=== PATIENT | male | born 1945 ===

== ENCOUNTER 2023-04-20 08:12 | Inpatient (IN) | payer MEDICARE, SELFPAY ==
--- NOTE | 2023-04-20 | EEG_ITS ---
This is a 16-channel EEG with an EKG lead. The patient is reported drowsy and confused during the tracing. Background EEG rhythm is low amplitude, mixed theta, beta with no obvious asymmetry or paroxysmal tendency. Photic stimulation does not produce any significant abnormality. Hypoventilation is not performed. Cardiac lead does not reveal any significant abnormality. IMPRESSION: Generalized slowing with no evidence of seizure disorder. MD OSVALDO Leon/KILEY / [id number]
--- NOTE | ~2023-04-20 | CT_ITS ---
EXAMINATION: CT ABDOMEN AND PELVIS WITH CONTRAST CLINICAL INFORMATION: Abdominal pain COMPARISON: None available. TECHNIQUE: Multidetector volumetric images were obtained from the superior aspect of the liver through the pubic symphysis following administration 85 mL of Omnipaque 350 intravenous contrast. Sagittal and coronal reformatted images were obtained on the technologist's workstation. Oral contrast: No This CT examination was performed using dose optimization techniques as appropriate, variously including the following: *Automated exposure control *Adjustment of mA and/or kV according to patient size (this includes techniques or standardized protocols for targeted exams where dose is matched to indication/reason for exam; i.e. extremities or head) *Use of iterative reconstruction technique DLP: 767 mGy-cm FINDINGS: LUNG BASES: The visualized lung bases are unremarkable. Coronary artery calcifications present LIVER, GALLBLADDER, AND BILIARY TREE: Liver is of low attenuation without intrahepatic masses or ductal dilatation. The gallbladder is unremarkable with no evidence of radiopaque gallstones, gallbladder wall thickening, or obvious pericholecystic inflammatory changes. PANCREAS: There is fatty atrophy of pancreatic head and proximal body. SPLEEN: Unremarkable. ADRENAL GLANDS: Unremarkable. KIDNEYS AND URETERS: The kidneys are normal in size, shape, and attenuation. No hydronephrosis, hydroureter, or calculi seen. No perinephric stranding. BLADDER: Unremarkable. GASTROINTESTINAL TRACT: Colonic loops are severely distended by gas and liquid stool without evidence of wall thickening. Small bowel loops and appendix are unremarkable. There is no mesenteric inflammatory changes and no diverticulitis or diverticulosis. ABDOMINAL WALL: No significant hernia is appreciated. LYMPH NODES: Normal. VASCULAR: There are atherosclerotic calcifications in the abdominal aorta and major tributaries. PELVIC VISCERA: Unremarkable. OSSEOUS STRUCTURES: There are multilevel degenerative changes in facet joints of lumbar spine with grade 1 anterior listhesis of L4 over L5 and no evidence of spondylolysis. There are mild degenerative changes and hip joints bilaterally. CT/CT abdomen pelvis w IV con IMPRESSION: 1. Severe distention of colon by gas and liquid stool most likely due to colitis. 2. Hepatic steatosis. 3. Fatty atrophy of pancreatic head and body. 4. Degenerative changes in lumbar spine and hip joints. Fleischner guidelines were followed.
--- NOTE | ~2023-04-20 | XR_ITS ---
EXAMINATION: XR CHEST CLINICAL INFORMATION: Confusion. COMPARISON: None available. TECHNIQUE: 2 views of the chest were obtained. FINDINGS: The lungs are well expanded. No focal consolidation. No pleural effusion. Cardiac silhouette is prominent. Distended bowel in the upper abdomen as seen on the lateral view. XR/XR chest 2V IMPRESSION: No acute cardiopulmonary process.
--- NOTE | ~2023-04-20 | CT_ITS ---
EXAMINATION: CT HEAD WITHOUT CONTRAST CLINICAL INFORMATION: Weakness and confusion. COMPARISON: None available. TECHNIQUE: Contiguous axial imaging was performed from the skull base to vertex without intravenous administration of contrast. This CT examination was performed using dose optimization techniques as appropriate, variously including the following: *Automated exposure control *Adjustment of mA and/or kV according to patient size (this includes techniques or standardized protocols for targeted exams where dose is matched to indication/reason for exam; i.e. extremities or head) *Use of iterative reconstruction technique DLP: 790 mGy-cm FINDINGS: There is no evidence of acute intracranial hemorrhage or large infiltrating territorial infarction. No mass effect or midline shift is seen. No extra-axial fluid collections are identified. Borderline ventriculomegaly. Patchy periventricular and deep white matter hypoattenuation is consistent with moderate small vessel ischemic changes. The calvarium is intact. Mastoid air cells are clear. Mucous retention cyst in the right maxillary sinus. Patchy opacification of the ethmoid air cells. Rightward deviation of the nasal septum with prominent septal spur. CT/CT head/brain wo IV con IMPRESSION: Borderline ventriculomegaly. Advise clinical correlation for normal pressure hydrocephalus.
--- NOTE | 2023-04-20 08:14 | ED.GENADULT ---
HPI - General Adult General Chief complaint: Altered Mental Status Stated complaint: N/V/D,CONFUSION Time Seen by Provider: 04/20/23 08:13 Source: patient and EMS Mode of arrival: EMS Limitations: other (patient is confused) History of Present Illness HPI narrative: Patient is a 77 year old assigned female at with a history of dementia presenting to the emergency department today with vomiting and diarrhea per EMS. Patient states that he has been sick over the last few days. However, the patient also states that he has cats here in the hospital with him. He does not have cats here in the hospital with him. EMS states that the patient's on scene stated that the patient is more confused, has diarrhea, and vomiting. Patient denies any dizziness, lightheadedness, abdominal pain, fever, chills, blurry vision, double vision, loss of vision, chest pain, difficulty breathing, shortness of breath, back pain, night sweats, pain with urination, increased urinary frequency, increased urinary urgency, blood in his urine or stool, syncope or a near syncopal episode, recent trauma or falls, bowel incontinence, bladder incontinence, bowel retention, bladder retention, or any other complaints at this time. Onset (ago): day(s) Relieving factors: none Exacerbating factors: none Associated symptoms: confusion (chronic for the patient) and nausea/vomiting Treatments prior to arrival: none Related Data Home Medications Medication Instructions Recorded Confirmed albuterol sulfate 90 mcg/actuation 2 puff inhalation Q4H PRN 04/20/23 04/20/23 aerosol inhaler Shortness Of Breath Or Wheezing aspirin 81 mg chewable tablet 81 mg PO DAILY 04/20/23 04/20/23 atorvastatin 40 mg tablet 40 mg PO BEDTIME 04/20/23 04/20/23 bisacodyl 5 mg tablet,delayed 10 mg PO DAILY PRN Constipation 04/20/23 04/20/23 release cholecalciferol (vitamin D3) 50 50 mcg PO BEDTIME 04/20/23 04/20/23 mcg (2,000 unit) tablet docusate sodium 100 mg capsule 100 mg PO DAILY 04/20/23 04/20/23 (Colace) donepezil 10 mg tablet 10 mg PO DAILY 04/20/23 04/20/23 ipratropium bromide 42 mcg (0.06 1 spray intranasal DAILY 04/20/23 04/20/23 %) nasal spray lisinopril 10 mg tablet 10 mg PO DAILY 04/20/23 04/20/23 memantine 10 mg tablet 10 mg PO BID 04/20/23 04/20/23 metoprolol succinate 25 mg 25 mg PO DAILY 04/20/23 04/20/23 tablet,extended release 24 hr multivitamin 1 tab PO DAILY 04/20/23 04/20/23 naproxen sodium 220 mg tablet 220 mg PO Q8H PRN Pain 04/20/23 04/20/23 (Aleve) sertraline 100 mg tablet 100 mg PO DAILY 04/20/23 04/20/23 Allergies Allergy/AdvReac Type Severity Reaction Status Date / Time No Known Allergies Allergy Verified 04/20/23 08:16 Review of Systems Review of Systems: Yes Other (patient answered questions but is confused at baseline) Constitutional: Constitutional: Reports no additional constitutional complaints, Denies chills, Denies fever(s) and Denies night sweats Eyes: Eyes: Reports no additional eye complaints, Denies blurry vision, Denies change in vision, Denies diplopia, Denies eye discharge, Denies loss of vision and Denies eye pain ENT: Denies dizziness Cardiovascular: Cardiovascular: Reports no additional cardiovascular complaints, Denies chest pain, Denies lightheadedness, Denies Loss of Consciousness and Denies dyspnea Respiratory: Respiratory: Reports no additional respiratory complaints and Denies dyspnea Gastrointestinal: Gastrointestinal: Reports no additional gastrointestinal complaints, Denies abdominal pain, Denies melena, Denies hematochezia, Denies change in bowel habits, Denies change in stool character, Reports diarrhea, Reports nausea and Reports vomiting Genitourinary: Genitourinary: Reports no additional male genitourinary complaints, Denies hematuria, Denies oliguria, Denies difficulty urinating, Denies dysuria, Denies urinary frequency, Denies urinary hesitancy, Denies urinary incontinence and Denies urinary urgency Musculoskeletal: Musculoskeletal: Reports no additional musculoskeletal complaints, Denies numbness and Denies tingling Neurologic: Reports confusion (chronic for the patient - reports it is worse today), Denies dizziness, Denies loss of vision, Denies numbness and Denies tingling Psychiatric: Psychiatric: Reports no additional psychiatric complaints and Reports confusion (chronic for the patient - reports it is worse today) Endocrine: Endocrine: Reports no additional endocrine complaints Hematologic/Lymphatic: Hematologic/Lymphatic: Reports no additional hematologic/lymphatic complaints Allergic/Immunologic: Allergic/Immunologic: Reports no additional allergic/immunologic complaints PMFSH Past Medical History Attestation statement: The following information was validated with the patient. (patient's validated all information) Source: old records reviewed, obtained from family (patient's provided additional history and confirmed the history provided by the patient and EMS) and nursing notes reviewed Medical History (Updated 04/20/23 @ 14:39 by SHAYY Cat) Dementia CAD (coronary artery disease) Family History Family History (Updated 04/20/23 @ 14:40 by SHAYY Cat) Mother CAD (coronary artery disease) Diabetes Social History Social History (Updated 04/20/23 @ 14:40 by SHAYY Cat) Alcohol intake: never Patient Tobacco Use Status: Former Tobacco user Smoked in Last 30 Days: No Use of substances other than those prescribed or required for medical reasons: No Advance Directives: Yes Advance Directives Information Provided: No Advance Directives on File: No Physical Exam ED Vital Signs: Vital Signs - 24 hr 04/20/23 08:29 04/20/23 08:36 04/20/23 10:50 Temperature 98.1 F 98.1 F Pulse Rate 82 81 75 Respiratory Rate 18 18 20 Blood Pressure 134/58 L 134/56 L 123/74 Pulse Oximetry 95 95 95 Oxygen Delivery Method Room Air Room Air Room Air BMI result Body Mass Index 34.1 Const General: confusion (chronic for the patient - reports it is worse today) Nutritional Appearance: well nourished Orientation/consciousness: confusion (chronic for the patient - reports it is worse today) Limitations: no limitations [facility] Head: Yes normal to inspection and Yes atraumatic Ears: hearing grossly normal bilaterally and external ears normal General nose exam: Normal external nose present, no nasal discharge noted and no epistaxis Face and sinus: Yes normal facial exam, No abrasion and No laceration Mouth: Normal oral and palatal mucosa present, no drooling and no muffled voice Eyes General: appearance normal, both eyes and all related structures Periorbital: periorbital findings normal Eyelids: Yes eyelids normal Conjunctivae: conjunctivae normal Pupils: Equal, round and reactive pupils present EOM: EOMs intact bilaterally Neck Neck: Yes normal visual inspection, Yes full ROM and Yes no lymphadenopathy Chest Chest palpation & inspection: normal inspection of the chest Resp Effort & Inspection: normal respiratory effort and able to speak in complete sentences GI Inspection: Yes normal to inspection Neuro General: confusion (chronic for the patient - reports it is worse today) Cranial nerves: Yes Equal, round and reactive pupils present Cognition (Neuro): normal cognition Motor exam (neuro): 5/5 motor strength present throughout Sensory Exam: Normal double simultaneous stimulation for sensation Coordination: [id number] test normal Extrem General: Yes normal to inspection, Yes full ROM and Yes capillary refill normal Psych Appearance: grossly normal Mental Status: mental status grossly normal Affect: normal affect Attitude: cooperative Thought process: Normal thought process present Thought content: Normal thought content present Insight: Good insight present (Psych) Medications Administered Discontinued Medications Generic Name Dose Route Start Last Admin Trade Name Freq PRN Reason Stop Dose Admin Sodium Chloride 1,000 mls @ 999 mls/hr 04/20/23 09:45 04/20/23 13:22 Ns IV 04/20/23 10:45 Infused .Q1H1M RIMMA Infusion Ceftriaxone Sodium 1 gm/ 50 mls @ 100 mls/hr 04/20/23 10:08 04/20/23 11:27 Sodium Chloride IV 04/20/23 10:37 Infused ONCE ONE Infusion Iohexol 100 ml 04/20/23 11:55 04/20/23 11:56 Iohexol 350 Mg/Ml 100 Ml Infus..Btl IV 04/20/23 11:56 85 ml ONCE ONE Administration Lorazepam 2 mg 04/20/23 13:00 04/20/23 13:25 Lorazepam 1 Mg Tablet PO 04/20/23 13:01 2 mg ONCE ONE Administration Medical Decision Making Medical Decision Making [facility] Narrative: Patient is a 77 year old assigned male at with a history of dementia presenting to the emergency department today with nausea, vomiting, diarrhea, and worsening confusion. Patient's physical exam was as noted in the physical exam portion of this note. Patient's blood work showed 29 bands but was otherwise unremarkable. Patient's urine showed no acute process. Patient's EKG was unremarkable. Patient's chest x-ray showed no acute process. Patient's abdominal/pelvis CT showed severe distention of colon by gas and liquid stool most likely due to colitis. Patient was given IV antibiotics. Patient C.Diff and stool cultures pending at this time. I spoke to the hospitalist team and they agreed to admission. I explained my physical exam findings as well as all test results to the patient and the patient's . I answered all questions asked by the patient and the patient's . Patient and the patient's verbalized agreement and understanding with this treatment plan and admission. Differential Diagnosis Differential Diagnoses: The differential diagnosis associated with the presentation includes Colitis C.Diff Giarrdia Colitis Obstruction Admission/Observation Consideration of admission/observation: Escalation of care including admission/observation considered Patient admitted. Consult Healthcare Provider Management of the patient was discussed with: Hospitalist (agreed to admission) Lab Data MDM Lab Attestation statement: I reviewed the patient's lab results. My interpretation of these results are in the MDM Rationale portion of this note. 04/20/23 09:07 04/20/23 09:07 Labs: Lab Results 04/20/23 04/20/23 04/20/23 Range/Units 09:05 09:07 10:46 WBC 6.6 (4.8-10.8) X10*3/uL RBC 4.38 L (4.60-5.80) X10*6/uL Hgb 13.1 L (14.0-18.0) g/dl Hct 37.3 L (42.0-52.0) % MCV 85.2 (80.0-98.0) fL MCH 29.9 (27.0-33.0) pg MCHC 35.1 (31.0-36.0) g/dl RDW 13.8 (11.0-16.0) % Plt Count 211 (160-400) X10*3/uL MPV 9.8 (9.4-12.4) fL Immature Gran % (Auto) Cancelled Neut % (Auto) Cancelled Lymph % (Auto) Cancelled [place] % (Auto) Cancelled Eos % (Auto) Cancelled Baso % (Auto) Cancelled Lymph # (Auto) Cancelled [place] # (Auto) Cancelled Eos # (Auto) Cancelled Baso # (Auto) Cancelled Abs Immat Gran (auto) Cancelled Absolute Neuts (auto) Cancelled Absolute Nucleated RBC 0.000 (0.0-0.012) X10*3/uL Nucleated RBC % (auto) 0.0 (0.0-0.2) /100WBC Neutrophils % (Manual) 45 (45-73) % Band Neutrophils % 25 H (3-5) % Lymphocytes % (Manual) 10 L (20-40) % Monocytes % (Manual) 14 H (2-11) % Eosinophils % (Manual) 5 H (0-4) % Myelocytes % 1 % Abs Neuts (Manual) 4.6 (2.0-8.3) X10*3/uL Lymphocytes # (Manual) 0.7 L (1.2-4.9) X10*3/uL Monocytes # (Manual) 0.9 (0.1-1.2) X10*3/uL Eosinophils # (Manual) 0.3 (0.0-0.4) X10*3/uL Myelocytes # 0.1 X10*/uL Platelet Estimate NORMAL (NORMAL) Plt Morphology Comment NORMAL RBC Morphology NORMAL PT 13.5 H (11.1-13.3) SEC INR 1.1 (0.9-1.1) APTT 24.6 L (26.0-36.8) SEC Sodium 135 (135-145) mmol/L Potassium 3.6 (3.3-5.1) mmol/L Chloride 108 (96-108) mmol/L Carbon Dioxide 20 L (22-29) mmol/L Anion Gap 11 L (12-20) BUN 28 H (9-16) mg/dL Creatinine 0.83 (0.5-1.4) mg/dL Estim Creat Clear Calc 88.9 Estimated GFR > 60 Random Glucose 119 H (60-115) mg/dL Lactic Acid 1.3 (0.5-2.0) mmol/L Calcium 8.7 (8.4-10.2) mg/dL Magnesium 1.9 (1.6-2.6) mg/dL Total Bilirubin 1.0 (0.0-1.0) mg/dL AST 18 (5-37) U/L ALT 28 (0-40) U/L Alkaline Phosphatase 57 (39-117) U/L Troponin I High Sens < 2.7 (<3.5-35.0) ng/L Total Protein 6.8 (6.5-8.0) g/dL Albumin 3.9 (3.5-5.0) g/dL Urine Color Yellow Urine Appearance Clear Urine pH 5.5 (5.0-9.0) Ur Specific [place] >= 1.030 H (1.005-1.025) Urine Protein 30 (1+) H (Neg-Trace) mg/dL Urine Glucose (UA) Negative (Negative) mg/dL Urine Ketones Negative (Negative) mg/dL Urine Blood Negative (Negative) Urine Nitrite Negative (Negative) Ur Leukocyte Esterase Negative (Negative) Urine RBC 0-2 (0-2) /HPF Urine WBC 0-5 (0-5) /HPF Ur Squamous Epith Cells 0-2 (0-2) /HPF Urine Bacteria None Seen (None Seen) Hyaline Casts 3-5 (0-2) /LPF Influenza Type A (PCR) NEGATIVE (Negative) Influenza Type B (PCR) NEGATIVE (Negative) RSV RNA Qual (PCR) NEGATIVE (Negative) SARS-CoV-2 RNA (RT-PCR) NEGATIVE (Negative) Independent Interpretation I performed an independent interpretation of an: EKG, Plain X-Ray and CT Scan Interpretation: My interpretation is in agreement with the radiologist's impression of these imaging studies. EXAMINATION: XR CHEST CLINICAL INFORMATION: Confusion. COMPARISON: None available. TECHNIQUE: 2 views of the chest were obtained. FINDINGS: The lungs are well expanded. No focal consolidation. No pleural effusion. Cardiac silhouette is prominent. Distended bowel in the upper abdomen as seen on the lateral view. XR/XR chest 2V IMPRESSION: No acute cardiopulmonary process. Dictated By: Meryl Cruz MD Signed By: Electronically signed by Meryl Cruz MD 04/20/23 0847 EXAMINATION: CT HEAD WITHOUT CONTRAST CLINICAL INFORMATION: Weakness and confusion. COMPARISON: None available. TECHNIQUE: Contiguous axial imaging was performed from the skull base to vertex without intravenous administration of contrast. This CT examination was performed using dose optimization techniques as appropriate, variously including the following: *Automated exposure control *Adjustment of mA and/or kV according to patient size (this includes techniques or standardized protocols for targeted exams where dose is matched to indication/reason for exam; i.e. extremities or head) *Use of iterative reconstruction technique DLP: 790 mGy-cm FINDINGS: There is no evidence of acute intracranial hemorrhage or large infiltrating territorial infarction. No mass effect or midline shift is seen. No extra-axial fluid collections are identified. Borderline ventriculomegaly. Patchy periventricular and deep white matter hypoattenuation is consistent with moderate small vessel ischemic changes. The calvarium is intact. Mastoid air cells are clear. Mucous retention cyst in the right maxillary sinus. Patchy opacification of the ethmoid air cells. Rightward deviation of the nasal septum with prominent septal spur. CT/CT head/brain wo IV con IMPRESSION: Borderline ventriculomegaly. Advise clinical correlation for normal pressure hydrocephalus. Dictated By: Meryl Cruz MD Signed By: Electronically signed by Meryl Cruz MD 04/20/23 0920 EXAMINATION: CT ABDOMEN AND PELVIS WITH CONTRAST CLINICAL INFORMATION: Abdominal pain COMPARISON: None available. TECHNIQUE: Multidetector volumetric images were obtained from the superior aspect of the liver through the pubic symphysis following administration 85 mL of Omnipaque 350 intravenous contrast. Sagittal and coronal reformatted images were obtained on the technologist's workstation. Oral contrast: No This CT examination was performed using dose optimization techniques as appropriate, variously including the following: *Automated exposure control *Adjustment of mA and/or kV according to patient size (this includes techniques or standardized protocols for targeted exams where dose is matched to indication/reason for exam; i.e. extremities or head) *Use of iterative reconstruction technique DLP: 767 mGy-cm FINDINGS: LUNG BASES: The visualized lung bases are unremarkable. Coronary artery calcifications present LIVER, GALLBLADDER, AND BILIARY TREE: Liver is of low attenuation without intrahepatic masses or ductal dilatation. The gallbladder is unremarkable with no evidence of radiopaque gallstones, gallbladder wall thickening, or obvious pericholecystic inflammatory changes. PANCREAS: There is fatty atrophy of pancreatic head and proximal body. SPLEEN: Unremarkable. ADRENAL GLANDS: Unremarkable. KIDNEYS AND URETERS: The kidneys are normal in size, shape, and attenuation. No hydronephrosis, hydroureter, or calculi seen. No perinephric stranding. BLADDER: Unremarkable. GASTROINTESTINAL TRACT: Colonic loops are severely distended by gas and liquid stool without evidence of wall thickening. Small bowel loops and appendix are unremarkable. There is no mesenteric inflammatory changes and no diverticulitis or diverticulosis. ABDOMINAL WALL: No significant hernia is appreciated. LYMPH NODES: Normal. VASCULAR: There are atherosclerotic calcifications in the abdominal aorta and major tributaries. PELVIC VISCERA: Unremarkable. OSSEOUS STRUCTURES: There are multilevel degenerative changes in facet joints of lumbar spine with grade 1 anterior listhesis of L4 over L5 and no evidence of spondylolysis. There are mild degenerative changes and hip joints bilaterally. CT/CT abdomen pelvis w IV con IMPRESSION: 1. Severe distention of colon by gas and liquid stool most likely due to colitis. 2. Hepatic steatosis. 3. Fatty atrophy of pancreatic head and body. 4. Degenerative changes in lumbar spine and hip joints. Fleischner guidelines were followed. Dictated By: Rukhsana Cutler MD Signed By: Electronically signed by Rukhsana Cutler MD 04/20/23 1321 Vent. Rate: 071 BPM Atrial Rate: 071 BPM P-R Int: 166 ms QRS Dur: 080 ms QT Int: 374 ms P-R-T Axes: 047 029 054 degrees QTc Int: 406 ms Normal sinus rhythm Normal ECG No previous ECGs available DD/ 0836 Radiology Impression Discussion of test interpretation with radiology: I have reviewed the radiologist's reading. Independent Historian Clinical information obtained from an independent historian. History obtained from or confirmed by: Spouse (patient's provided additional history and confirmed the history provided by the patient and EMS) and EMS (EMS provided additional history and confirmed the history provided by the patient and his ) Critical Care Time Critical Care Time Critical Care Time: Yes Total Critical Care Time: 55 Attestation: I spent 55 minutes of Critical Care Time with this patient. This does not include time spent on separately reported billable procedures. Discharge Plan Discharge Clinical Impression: Dementia, Colitis, Bandemia Patient Disposition: Admitted As Inpatient
--- NOTE | 2023-04-20 08:16 | ECG_ITS ---
Test Reason : weakness,nausea,vomiting Blood Pressure : / mmHG Vent. Rate : 071 BPM Atrial Rate : 071 BPM P-R Int : 166 ms QRS Dur : 080 ms QT Int : 374 ms P-R-T Axes : 047 029 054 degrees QTc Int : 406 ms Normal sinus rhythm Normal ECG No previous ECGs available Referred By: Amber Villatoro Electronically Signed By:Daryn Bills
[2023-04-20 08:29] VITALS: BP 134/58; BP 146/74; PULSE 80; PULSE 82; RESP 18; TEMP 36.7; O2SAT 95; O2SAT 97; BMI 34.1
[2023-04-20 08:36] VITALS: BP 134/56; PULSE 81; RESP 18; TEMP 36.7; O2SAT 95
--- NOTE | 2023-04-20 08:40 | PC.NURSE ---
pt presents via EMS for increased confusion, N/V/D X multiple days and no PO intake since monday. pt lives at home with , reports to EMS that pt is confused at baseline due to dementia but confusion has increased last couple of days. pt noted to be oriented to person and place, otherwise confused. Breathing even and unlabore, skin dry and slightly pale. pt reports he has been vomiting and not eating, otherwise here because of his cats . EMS gave NS 350 mL, IV in left hand 20G.
--- NOTE | 2023-04-20 08:42 | PC.NURSE ---
pt taken to CT scan at this time.
--- NOTE | 2023-04-20 08:53 | PC.NURSE ---
pts abd noted to be hard and distended. pt resting in bed, no outward distress at this time
--- NOTE | 2023-04-20 08:54 | PC.NURSE ---
pt placed on bedside manager cardiac cath, NSR.
--- OUTSIDE RECORDS SUMMARY | 2023-04-20 09:17 | XMS_ITS | Continuity of Care Document ---
Author Name Unknown Organization [facility] Address [address] [facility] [facility] [address] [place] [address]- Care Team Providers Care Bisque Placer Name Role Phone Lissy MANZANO, Hawk Madrigal Primary Care Physician Encounter 06/28/21 - 07/05/21 [facility] [address], [address] [address]- Attending Physician: Bre Espinal NP Admitting Physician: Bre Espinal NP Referring Physician: Teddy DUGAN, Bre Banks Allergies, Adverse Reactions, Alerts No Known Allergies Medications aspirin 81 mg oral tablet, chewable = 81 mg, By Mouth, Daily, # 30 tablet, 2 Refills, Maintenance, 04/10/15 14:49:56, Chew Tablet, 81 mg By Mouth Daily Start Date: 04/10/15 Status: Ordered atorvastatin 80 mg oral tablet = 80 mg, By Mouth, Daily at bedtime, # 30 tablet, 0 Refills, Maintenance, 04/10/15 14:50:49, Tablet, 80 mg By Mouth Daily at bedtime Start Date: 04/10/15 Status: Ordered folic acid 1 mg oral tablet = 1 mg, By Mouth, Daily, # 30 tablet, 0 Refills, Maintenance, 04/10/15 14:51:08, Tablet, 1 mg By Mouth Daily Start Date: 04/10/15 Status: Ordered lisinopril 10 mg oral tablet 1 tablet = 10 mg, By Mouth, Daily, # 30 tablet, 0 Refills, Maintenance, 04/06/15 17:40:15, Tablet Start Date: 04/06/15 Status: Ordered Metoprolol Succinate ER 25 mg oral tablet, extended release 1 tablet = 25 mg, By Mouth, Daily, # 30 tablet, 0 Refills, Maintenance, 04/10/15 14:53:37, ER Tablet, 1 tablet By Mouth Daily Start Date: 04/10/15 Status: Ordered multivitamin Multiple Vitamins oral tablet 1 tablet, By Mouth, Daily, # 30 tablet, 0 Refills, Maintenance, 04/10/15 14:54:57, Tablet, 1 tabletBy Mouth Daily Start Date: 04/10/15 Status: Ordered sertraline 100 mg oral tablet = 100 mg, By Mouth, Daily, # 30 tablet, 0 Refills, Maintenance, 04/10/15 14:49:18, Tablet, 100 mg By Mouth Daily Start Date: 04/10/15 Status: Ordered ticagrelor 90 mg oral tablet 1 tablet = 90 mg, By Mouth, 2 times a day, # 60 tablet, 2 Refills, Maintenance, 04/10/15 14:55:52, Tablet, 1 tablet By Mouth 2 times a day Start Date: 04/10/15 Status: Ordered Social History Social History Type Response Smoking Status Former smoker; Type: Cigarettes; Other: Pt smoked 1 PPD x30 years, quit 04/06/15 Pt currently using nicotine patch; entered on: 04/22/15 Sex
--- OUTSIDE RECORDS SUMMARY | 2023-04-20 09:19 | XMS_ITS | Continuity of Care Document ---
Author Name Unknown Organization [facility] Address [address] [place] [id number]- Care Team Providers Care Glass Driller Name Role Phone Lissy MANZANO, Hawk Madrigal Primary Care Physician [phone] Encounter [facility] Date(s): 06/21/22 - 07/21/22 [facility] [address] [place] [id number] Allergies, Adverse Reactions, Alerts No Known Allergies [...] using nicotine patch; entered on: 04/22/15 Sex Patient Care team information Care Team Personnel Name: Lissy MANZANO , Hawk Madrigal Position: [facility] Outreach Member Role: PCP Address: Address: [address] [place] [id number]- Care Team Related Persons Name: JOEL SNYDER Address: home [address] [place] [address]
[2023-04-20 09:20] LABS: INTERNATIONAL NORM RATIO 1.1 (0.9-1.1); Prothrombin Time 13.5 SEC (11.1-13.3)
[2023-04-20 09:22] LABS: Partial Thromboplastin Time 24.6 SEC (26.0-36.8)
[2023-04-20 09:25] LABS: Lactic Acid 1.3 mmol/L (0.5-2.0)
[2023-04-20 09:25] LABS: Hematocrit 37.3 % (42.0-52.0); Hemoglobin 13.1 g/dl (14.0-18.0); Mean Corpuscular HGB Conc 35.1 g/dl (31.0-36.0); Mean Corpuscular Hemoglobin 29.9 pg (27.0-33.0); Mean Corpuscular Volume 85.2 fL (80.0-98.0); Mean Platelet Volume 9.8 fL (9.4-12.4); Platelet Count 211 X10*3/uL (160-400); Red Blood Count 4.38 X10*6/uL (4.60-5.80); Red Cell Distribution Width 13.8 % (11.0-16.0); White Blood Count 6.6 X10*3/uL (4.8-10.8)
--- NOTE | 2023-04-20 09:25 | PC.NURSE ---
pt bladder scanned per provider, scan revealed 195 mL.
[2023-04-20 09:30] LABS: Alanine Aminotransferase 28 U/L (0-40); Albumin Level 3.9 g/dL (3.5-5.0); Alkaline Phosphatase 57 U/L (39-117); Anion Gap 11 (12-20); Aspartate Amino Transferase 18 U/L (5-37); Blood Urea Nitrogen 28 mg/dL (9-16); Calcium 8.7 mg/dL (8.4-10.2); Carbon Dioxide 20 mmol/L (22-29); Chloride 108 mmol/L (96-108); Creatinine Clr Calc Pharmacy 88.9; Estimated Glomerular Filt Rate > 60; Glucose Random 119 mg/dL (60-115); Magnesium 1.9 mg/dL (1.6-2.6); Potassium 3.6 mmol/L (3.3-5.1); Sodium 135 mmol/L (135-145); Total Protein 6.8 g/dL (6.5-8.0)
[2023-04-20 09:38] LABS: Troponin-I High Sensitivity < 2.7 ng/L (<3.5-35.0)
[2023-04-20] MEDS: 0.9 % Sodium Chloride 1,000 ML 999 ML IV (09:42)
[2023-04-20 09:50] LABS: Influenza A PCR NEGATIVE (Negative); Influenza B PCR NEGATIVE (Negative); Resp Syncy Virus RNA Qual PCR NEGATIVE (Negative); SARS COV2 PCR INHOUSE NEGATIVE (Negative)
[2023-04-20 10:04] LABS: Neutrophils Percent Manual 45 % (45-73)
[2023-04-20 10:07] LABS: Band Neutrophils Percent 25 % (3-5); Eosinophils Absolute Manual 0.3 X10*3/uL (0.0-0.4); Eosinophils Percent Manual 5 % (0-4); Lymphocytes Absolute Manual 0.7 X10*3/uL (1.2-4.9); Lymphocytes Percent Manual 10 % (20-40); Monocytes Absolute Manual 0.9 X10*3/uL (0.1-1.2); Monocytes Percent Manual 14 % (2-11); Myelocytes Absolute 0.1 X10*/uL; Myelocytes Percent 1 %; Neutrophils Absolute Manual 4.6 X10*3/uL (2.0-8.3); Platelet Estimate NORMAL (NORMAL); Platelet Morphology Comment NORMAL; RBC Morphology NORMAL
[2023-04-20] MEDS: cefTRIAXone sodium 1 GM in 0.9 % Sodium Chloride 50 ML IV (10:48)
[2023-04-20 10:50] VITALS: BP 123/74; PULSE 75; RESP 20; O2SAT 95
[2023-04-20 10:57] LABS: Appearance Urine Clear; Color Urine Yellow; Glucose Urine UA Negative (Negative); Leukocyte Esterase Urine Negative (Negative); Nitrite Urine Negative (Negative); PH 5.5 (5.0-9.0); Specific Gravity - Urine >= 1.030 (1.005-1.025); UMIC TRIGGER UACC YES; Urine Blood Negative (Negative); Urine Ketones Negative (Negative); Urine Protein 30 (1+) mg/dL (Neg-Trace)
[2023-04-20 11:09] LABS: Bacteria Urine None Seen (None Seen); RBC Urine 0-2 /HPF (0-2); Squamous Epithelial Cell Urine 0-2 /HPF (0-2); WBC Urine 0-5 /HPF (0-5)
[2023-04-20] MEDS: iohexoL 350 MG/ML 100 ML INFUS..BTL IV (11:56)
[2023-04-20] MEDS: LORazepam 1 MG TABLET 2 MG PO (13:25)
--- NOTE | 2023-04-20 14:01 | PC.NURSE ---
Hospitalist at bedside for eveal. Awaiting stool specimen for collection. at bedside
--- NOTE | 2023-04-20 14:28 | PHA.MEDREC ---
Pharmacy Consult ? Medication Reconciliation Pharmacy has completed the medication reconciliation. Patient's family member confirm medications. Unsure if metoprolol is twice a day or once a day. Per claim history he received 90 tablet for a 90 day supply. There for it would be once a day. Alma Nelson, PharmD
--- NOTE | 2023-04-20 14:30 | PM.IMHP ---
History of Present Illness Date of Service: 04/20/23 Attending physician on admission: Percy Sanchez Chief Complaint: weakness, vomiting, diarrhea This is a 77-year-old male with history of coronary artery disease and dementia who was brought to the emergency department by his due to increasing weakness. Monday night he had a meatball sample grinder and Monday he had a tuna fish sample grinder. Shortly after that time he began having multiple episodes of non bloody vomiting. As well as intermittent diarrhea. He has had no associated abdominal pain, fever, chills. No recent sick contacts, no recent antibiotic use or hospitalizations. Patient's says that he has not had anything substantial to eat since Monday and has had increasing generalized weakness and was unable to stand. In the emergency department he was afebrile, workup significant for bandemia of 25%. CT scan of the abdomen showed severe distention of colon by gas and liquid stool most likely due to colitis. He received a dose of IV ceftriaxone and IV fluid in the emergency department and the decision was made to admit him to the hospital for further management of colitis. The majority of his history was obtained from his at the bedside as the patient himself appears confused and is a vague historian at this time. Review of Systems Review of Systems: Yes all other systems are reviewed and are negative Constitutional: Constitutional: Denies chills and Denies fever(s) Cardiovascular: Cardiovascular: Denies chest pain Gastrointestinal: Gastrointestinal: Denies abdominal pain Neurologic: Reports confusion Psychiatric: Psychiatric: Reports confusion [facility] Medical History (Updated 04/20/23 @ 14:39 by SHAYY Cat) Dementia CAD (coronary artery disease) Family History (Updated 04/20/23 @ 14:40 by SHAYY Cat) Mother CAD (coronary artery disease) Diabetes Social History (Updated 04/20/23 @ 14:40 by SHAYY Cat) Alcohol intake: never Patient Tobacco Use Status: Former Tobacco user Smoked in Last 30 Days: No Use of substances other than those prescribed or required for medical reasons: No Advance Directives: Yes Advance Directives Information Provided: No Advance Directives on File: No Meds Allergies Allergy/AdvReac Type Severity Reaction Status Date / Time No Known Allergies Allergy Verified 04/20/23 08:16 Active Medications: Current Medications Acetaminophen (Acetaminophen 325 Mg Tablet) 650 mg PO Q6H PRN PRN Reason: Pain, Mild (Pain Scale 1-3) Enoxaparin Sodium (Enoxaparin Sodium 40 Mg/0.4 Ml Syringe) 40 mg SUBCUT Q24H [facility] Ondansetron HCl (Ondansetron Hcl 4 Mg/2 Ml Vial) 4 mg IVPUSH Q8H PRN PRN Reason: Nausea and Vomiting Sodium Chloride (0.9 % Sodium Chloride Flush 3 Ml Syringe) 3 ml IVFLUSH QSHIFT [facility] Home Medications Medication Instructions Recorded Confirmed Last Taken Type albuterol sulfate 90 mcg/actuation 2 puff inhalation Q4H PRN 04/20/23 04/20/23 Unknown History aerosol inhaler Shortness Of Breath Or Wheezing aspirin 81 mg chewable tablet 81 mg PO DAILY 04/20/23 04/20/23 2 Days Ago History ~04/18/23 atorvastatin 40 mg tablet 40 mg PO BEDTIME 04/20/23 04/20/23 2 Days Ago History ~04/18/23 bisacodyl 5 mg tablet,delayed 10 mg PO DAILY PRN Constipation 04/20/23 04/20/23 Unknown History release cholecalciferol (vitamin D3) 50 50 mcg PO BEDTIME 04/20/23 04/20/23 2 Days Ago History mcg (2,000 unit) tablet ~04/18/23 docusate sodium 100 mg capsule 100 mg PO DAILY 04/20/23 04/20/23 2 Days Ago History (Colace) ~04/18/23 donepezil 10 mg tablet 10 mg PO DAILY 04/20/23 04/20/23 2 Days Ago History ~04/18/23 ipratropium bromide 42 mcg (0.06 1 spray intranasal DAILY 04/20/23 04/20/23 2 Days Ago History %) nasal spray ~04/18/23 lisinopril 10 mg tablet 10 mg PO DAILY 04/20/23 04/20/23 2 Days Ago History ~04/18/23 memantine 10 mg tablet 10 mg PO BID 04/20/23 04/20/23 2 Days Ago History ~04/18/23 metoprolol succinate 25 mg 25 mg PO DAILY 04/20/23 04/20/23 2 Days Ago History tablet,extended release 24 hr ~04/18/23 multivitamin 1 tab PO DAILY 04/20/23 04/20/23 2 Days Ago History ~04/18/23 naproxen sodium 220 mg tablet 220 mg PO Q8H PRN Pain 04/20/23 04/20/23 Unknown History (Aleve) sertraline 100 mg tablet 100 mg PO DAILY 04/20/23 04/20/23 2 Days Ago History ~04/18/23 Physical Exam Vital Signs and Narrative: Vital Signs: Last Vital Signs Temp 98.1 F 04/20/23 08:36 Pulse 75 04/20/23 10:50 Resp 20 04/20/23 10:50 BP 123/74 04/20/23 10:50 Pulse Ox 95 04/20/23 10:50 O2 Del Method Room Air 04/20/23 10:50 BMI result Body Mass Index 34.1 Const: General: cooperative, alert, awake and confusion Nutritional Appearance: overweight Orientation/consciousness: confusion Resp: Effort & Inspection: normal respiratory effort, able to speak in complete sentences, no respiratory distress and no use of accessory muscles Auscultation: clear to auscultation bilaterally Cardio: Rate: regular rate GI: Inspection: No distended Palpation (GI): Soft to palpation Neuro: Other: grossly nonfocal General: confusion Extrem: General: Yes no pedal edema Results Labs 04/20/23 09:07 04/20/23 09:07 Labs: Laboratory Results - last 24 hr 04/20/23 04/20/23 04/20/23 09:05 09:07 10:46 MCV 85.2 MCH 29.9 MCHC 35.1 RDW 13.8 Plt Count 211 MPV 9.8 Immature Gran % (Auto) Cancelled Neut % (Auto) Cancelled Lymph % (Auto) Cancelled Bowie % (Auto) Cancelled Eos % (Auto) Cancelled Baso % (Auto) Cancelled Lymph # (Auto) Cancelled Bowie # (Auto) Cancelled Eos # (Auto) Cancelled Baso # (Auto) Cancelled Abs Immat Gran (auto) Cancelled Absolute Neuts (auto) Cancelled Absolute Nucleated RBC 0.000 Nucleated RBC % (auto) 0.0 Neutrophils % (Manual) 45 Band Neutrophils % 25 H Lymphocytes % (Manual) 10 L Monocytes % (Manual) 14 H Eosinophils % (Manual) 5 H Myelocytes % 1 Abs Neuts (Manual) 4.6 Lymphocytes # (Manual) 0.7 L Monocytes # (Manual) 0.9 Eosinophils # (Manual) 0.3 Myelocytes # 0.1 Platelet Estimate NORMAL Plt Morphology Comment NORMAL RBC Morphology NORMAL PT 13.5 H INR 1.1 APTT 24.6 L Anion Gap 11 L Estim Creat Clear Calc 88.9 Estimated GFR > 60 Random Glucose 119 H Lactic Acid 1.3 Calcium 8.7 Magnesium 1.9 Total Bilirubin 1.0 AST 18 ALT 28 Alkaline Phosphatase 57 Troponin I High Sens < 2.7 Total Protein 6.8 Albumin 3.9 Urine Color Yellow Urine Appearance Clear Urine pH 5.5 Ur Specific Meadow >= 1.030 H Urine Protein 30 (1+) H Urine Glucose (UA) Negative Urine Ketones Negative Urine Blood Negative Urine Nitrite Negative Ur Leukocyte Esterase Negative Urine RBC 0-2 Urine WBC 0-5 Ur Squamous Epith Cells 0-2 Urine Bacteria None Seen Hyaline Casts 3-5 Influenza Type A (PCR) NEGATIVE Influenza Type B (PCR) NEGATIVE RSV RNA Qual (PCR) NEGATIVE SARS-CoV-2 RNA (RT-PCR) NEGATIVE Imaging Radiologist's Impressions: Impressions Chest X-Ray 04/20/23 08:26 IMPRESSION: No acute cardiopulmonary process. Head CT 04/20/23 08:59 IMPRESSION: Borderline ventriculomegaly. Advise clinical correlation for normal pressure hydrocephalus. Abdomen/Pelvis CT 04/20/23 11:57 IMPRESSION: 1. Severe distention of colon by gas and liquid stool most likely due to colitis. 2. Hepatic steatosis. 3. Fatty atrophy of pancreatic head and body. 4. Degenerative changes in lumbar spine and hip joints. Fleischner guidelines were followed. Assessment and Plan (1) Colitis: Status: Acute (2) Bandemia: Status: Acute Plan This is a 77-year-old male with history of coronary artery disease, dementia who presents to the emergency department with weakness and N/V/D found to have colitis acute colitis vs gastroenteritis CT with severe distention of colon with gas and liquid stool pt with N/V/D check stool studies, rule out cdif IV zosyn clear liquids, advance as tolerated metabolic encephalopathy due to above on a background of dementia, unspecified CAD no chest pain continue asa, BB, statin dementia unspecified, likely Alzheimer's continue namenda, aricept HTN continue lisinorpril, metroprolol Mood continue sertraline DVT ppx - lovenox code status - Full code HCP - Given confusion and colitis, will likely require two midnight stay in the hospital for treatment with IV antitibiotics addendeum: pt was given one time dose of seroquel for increasing anxiety likely due to from underlying dementia. shortly after he began having what was described by the nurse as full body shaking while remaining awake. initial re-eval he appeared comfortable but confused but no shaking movements seen. on second re-eval he was noted to have chorea like movements ?due to seroquel. will trial low dose of ativan. tele monitor ordered. neuro consulted Quality Stroke Does the patient have a stroke diagnosis?: No VTE Prior VTE?: No VTE Risk Level:: Medical - moderate - high VTE Device Contraindication: Treatment Not Indicated VTE Drug Contraindication: N/A - Med Ordered
[2023-04-20] MEDS: Piperacillin Sodium/Tazobactam 3.375 GM in 0.9 % Sodium Chloride 50 ML IV ×2 (15:21→20:12)
[2023-04-20] MEDS: Lactated Ringers 1,000 ML 100 ML IVCONT (15:24)
[2023-04-20 15:34] VITALS: BP 151/91; PULSE 74; RESP 20; TEMP 37.6; O2SAT 97
[2023-04-20] MEDS: 0.9 % Sodium Chloride Flush 3 ML SYRINGE IVFLUSH (15:34)
--- NOTE | 2023-04-20 15:35 | PC.NURSE ---
increased agitation, hallucinations and confusion. Hospitalist aware. Rctal temp 99.7. left bedside and will return. Abx given and LR started at 100ml/hr. Skin warm pink and dry. VSS
[2023-04-20] MEDS: QUEtiapine Fumarate 25 MG TABLET PO (15:36)
--- NOTE | 2023-04-20 16:30 | PC.NURSE ---
pt noted to have brief periods of full body shaking, remains alert during these episodes.
--- NOTE | 2023-04-20 16:42 | PC.NURSE ---
hospitalist contacted due to pts increasing hallucinations and agitation. provider came to bedside.
--- NOTE | 2023-04-20 17:03 | PC.NURSE ---
pt noted to have more frequent episodes of full body shaking, lasts approx 5-10 seconds each. pt remains alert and talking during this episodes but appears to have no control over his body. pt is confused, making bizarre statements. admitting provider notified again
--- NOTE | 2023-04-20 17:16 | PC.NURSE ---
Pt continues to be increasingly altered, noted with jerky shaking movements last approx 2-5 sec every 1-2 min, seizure like however pt remains conscious throughout episodes. Pt not answering questions appropriately as with initial assessment. Yaima LUCAS aware, pt being transferred to floor at this time with Ella LAWS and Mitchel esquivel for safety
[2023-04-20] MEDS: LORazepam 2 MG/ML VIAL 0.5 MG IVPUSH (17:49)
[2023-04-20] MEDS: Enoxaparin Sodium 40 MG/0.4 ML SYRINGE SUBCUT (17:49)
[2023-04-20 17:59] VITALS: BP 162/77; PULSE 99; RESP 21; O2SAT 94
[2023-04-20 19:04] VITALS: BP 149/67; PULSE 88; TEMP 37; O2SAT 94
--- NOTE | 2023-04-20 20:46 | PM.EVENT ---
Event Note Date of Service: 04/20/23 Event Note: The nurse stated that the wanted to talk about the patient. The states that she had discussed with the regarding goals of care. The was clear that he did not want intubation. Also the who is healthcare proxy does not want any resuscitative measures. The understands and is able to communicate clearly. Will change code status to DNR/DNI. Time Spent With Patient Time: Total time managing care of this patient today ____ minutes.
[2023-04-20] MEDS: OLANZapine 10 MG VIAL 5 MG IM (21:22)
[2023-04-20] MEDS: diazePAM 10 MG/2 ML CARTRIDGE 5 MG IVPUSH (21:52)
[2023-04-21] MEDS: Lactated Ringers 1,000 ML 100 ML IVCONT ×2 (01:46→12:45)
[2023-04-21] MEDS: Piperacillin Sodium/Tazobactam 3.375 GM in 0.9 % Sodium Chloride 50 ML IV ×4 (02:33→21:27)
[2023-04-21] MEDS: diazePAM 10 MG/2 ML CARTRIDGE 5 MG IVPUSH ×2 (03:54→22:06)
[2023-04-21 04:00] VITALS: BP 142/66; PULSE 64; RESP 20; TEMP 36.2; O2SAT 94
--- NOTE | 2023-04-21 04:12 | PC.NURSE ---
Pt seen on bed at start of shift, pt's is at bedside and voicing concern and asking to speak to MD, pt was lethargic with periods of wakefulness but confused and thrashing on the air, spastic and tremulous, unredirectible and slurred, Dr. Escobar was updated, Shawn Armenta came and spoke to pt's , code status was changed to DNR/DNI, po meds held as per Dr. Escobar for aspiration prevention, Zyprexa IM ordered, no effect noted, Valium Iv given, pt slept for a few hours. At 0300, pt begun to be increasingly agitated ,combative, restless and spastic on and off, Dr. Escobar was informed, another Valium 5 mg IV given, pt slept after.
[2023-04-21 05:29] LABS: MANUAL DIFF FLAG NO
[2023-04-21 05:45] LABS: Basophils Percent Auto 0.3 % (0-2); Eosinophils Absolute Auto 0.2 X10*3/uL (0.0-0.4); Eosinophils Percent Auto 2.7 % (0-4); Hematocrit 33.8 % (42.0-52.0); Hemoglobin 11.7 g/dl (14.0-18.0); Imm Gran Abs Auto 0.04 X10*3/uL (0.00-0.03); Imm Gran Pct Auto 0.6 % (0.0-0.4); Lymphocytes Absolute Auto 0.9 X10*3/uL (1.2-4.9); Lymphocytes Percent Auto 14.8 % (20-40); Mean Corpuscular HGB Conc 34.6 g/dl (31.0-36.0); Mean Corpuscular Hemoglobin 29.5 pg (27.0-33.0); Mean Corpuscular Volume 85.4 fL (80.0-98.0); Mean Platelet Volume 9.5 fL (9.4-12.4); Neutrophils Absolute Auto 4.1 x10*3/uL (2.0-8.3); Neutrophils Percent Auto 65.6 % (45-73); Platelet Count 158 X10*3/uL (160-400); Red Blood Count 3.96 X10*6/uL (4.60-5.80); Red Cell Distribution Width 13.5 % (11.0-16.0); White Blood Count 6.2 X10*3/uL (4.8-10.8)
[2023-04-21 05:50] LABS: Anion Gap 10 (12-20); Blood Urea Nitrogen 18 mg/dL (9-16); Calcium 8.4 mg/dL (8.4-10.2); Carbon Dioxide 23 mmol/L (22-29); Chloride 111 mmol/L (96-108); Creatinine Clr Calc Pharmacy 89.9; Estimated Glomerular Filt Rate > 60; Glucose Random 97 mg/dL (60-115); Potassium 3.3 mmol/L (3.3-5.1); Sodium 141 mmol/L (135-145)
[2023-04-21 07:05] VITALS: BP 161/68; PULSE 56; RESP 18; TEMP 36.6; O2SAT 96
--- NOTE | 2023-04-21 09:05 | MHC.CLN ---
NUTRITION ELAN =11 BUT NO SKIN ISSUES NOTED. RD TO MONITOR WEEKLY.
[2023-04-21] MEDS: 0.9 % Sodium Chloride Flush 3 ML SYRINGE IVFLUSH (09:54)
--- NOTE | 2023-04-21 11:03 | MHC.CM.PN ---
Addendum entered by Yesica Mckeon RN 04/21/23 11:11: IMM delivered to /HCP. Original Note: PODIATRY DOCTOR completed with patient's /hcp Amber, patient w/ confusion at this time. Per - dx vascular dementia, but at baseline only has periods of forgetfulness when stressed. Also has tremors to both hands and shuffles at times. Has declined neurology referral for further work up. Patient is independent w/ mobility and ADL's, still drives. No DME or services. PCP: Jonathan Chavarria MD [facility] - confirmed w/ office HCP: provided copy of HCP. Agents are 1) Amber Mane [phone] 2) daughter Aminah Mane [phone] DP: Per patient has been very weak, will likely need PT eval. is open to home services and can transport home. CM will continue to follow.
--- NOTE | 2023-04-21 14:29 | PM.NEUROCN ---
History of Present Illness Data of Consult Service Date: 04/21/23 Primary Care Provider: Jonathan Chavarria MD HPI Reason for consult: Change in mental status 77 years old man who probably has underlying dementia came to hospital with a day or 2 history of abdominal pain nausea and vomiting and diarrhea. While this was happening, his mental status changed and he was noted to be very confused and having generalize movements. His daughter stated that he had to become down with Valium otherwise he was shaking like a seizure. When I saw him he was sedated. Review of Systems Review of Systems: Could not be done with him [facility] Past Medical History Medical History (Updated 04/21/23 @ 14:30 by Cooper Stein MD) Dementia CAD (coronary artery disease) Family History Family History (Updated 04/20/23 @ 14:40 by SHAYY Cat) Mother CAD (coronary artery disease) Diabetes Social History Social History (Updated 04/20/23 @ 14:40 by SAHYY Cat) Household Members: Spouse Housing: House Alcohol intake: never Patient Tobacco Use Status: Former Tobacco user Smoked in Last 30 Days: No Use of substances other than those prescribed or required for medical reasons: Unable to respond Currently Displaying Signs/Symptoms of Drug Intoxication Withdrawal: No Advance Directives: Yes Advance Directives Information Provided: No Advance Directives on File: No Advance Directives Date on File: 04/20/23 Recently lost weight without trying: Unsure Nutrition Risks: No Nutritional Risk service: No Meds Allergies Allergy/AdvReac Type Severity Reaction Status Date / Time No Known Allergies Allergy Verified 04/20/23 08:16 Active Medications: Current Medications Acetaminophen (Acetaminophen 325 Mg Tablet) 650 mg PO Q6H PRN PRN Reason: Pain, Mild (Pain Scale 1-3) Albuterol Sulfate (Albuterol Sulfate 90 Mcg 8 Gm Inhaler) 2 puff INHALE Q4H PRN PRN Reason: Shortness Of Breath Or Wheezing Aspirin (Aspirin 81 Mg Tab.Chew) 81 mg PO DAILY [facility] Last Admin: 04/21/23 10:46 Dose: Not Given Atorvastatin Calcium (Atorvastatin Calcium 40 Mg Tablet) 40 mg PO BEDTIME [facility] Last Admin: 04/20/23 21:41 Dose: Not Given Docusate Sodium (Docusate Sodium 100 Mg Capsule) 100 mg PO DAILY [facility] Last Admin: 04/21/23 10:46 Dose: Not Given Donepezil HCl (Donepezil Hcl 10 Mg Tablet) 10 mg PO DAILY [facility] Last Admin: 04/21/23 10:46 Dose: Not Given Enoxaparin Sodium (Enoxaparin Sodium 40 Mg/0.4 Ml Syringe) 40 mg SUBCUT Q24H [facility] Last Admin: 04/20/23 17:49 Dose: 40 mg Piperacillin Sod/Tazobactam (Sod 3.375 gm/ Sodium Chloride) 50 mls @ 100 mls/hr IV Q6H [facility] Last Infusion: 04/21/23 10:05 Dose: Infused Lactated Ringer's (Lr) 1,000 mls @ 100 mls/hr IVCONT .Q10H [facility] Last Admin: 04/21/23 12:45 Dose: 100 mls/hr Ipratropium [place] (Ipratropium [place] 0.06 % 15 Ml [place]) 1 spray NOSTRIL-B DAILY [facility] Last Admin: 04/21/23 10:46 Dose: Not Given Lisinopril (Lisinopril 10 Mg Tablet) 10 mg PO DAILY [facility]; Protocol Last Admin: 04/21/23 10:47 Dose: Not Given Memantine (Memantine Hcl 10 Mg Tablet) 10 mg PO BID [facility] Last Admin: 04/21/23 10:47 Dose: Not Given Metoprolol Succinate (Metoprolol Succinate Er 25 Mg Tab.Er.24h) 25 mg PO DAILY [facility]; Protocol Last Admin: 04/21/23 10:47 Dose: Not Given Multivitamins/Vitamin C (Multivitamin Tablet) 1 tab PO DAILY [facility] Last Admin: 04/21/23 10:48 Dose: Not Given Ondansetron HCl (Ondansetron Hcl 4 Mg/2 Ml Vial) 4 mg IVPUSH Q8H PRN PRN Reason: Nausea and Vomiting Sertraline HCl (Sertraline Hcl 100 Mg Tablet) 100 mg PO DAILY [facility] Last Admin: 04/21/23 10:48 Dose: Not Given Sodium Chloride (0.9 % Sodium Chloride Flush 3 Ml Syringe) 3 ml IVFLUSH QSHIFT [facility] Last Admin: 04/21/23 09:54 Dose: 3 ml Vitamin D (Cholecalciferol (Vitamin D3) 25 Mcg Tablet) 50 mcg PO BEDTIME [facility] Last Admin: 04/20/23 21:41 Dose: Not Given Home Medications Medication Instructions Recorded Confirmed Last Taken Type albuterol sulfate 90 mcg/actuation 2 puff inhalation Q4H PRN 04/20/23 04/20/23 Unknown History aerosol inhaler Shortness Of Breath Or Wheezing aspirin 81 mg chewable tablet 81 mg PO DAILY 04/20/23 04/20/23 2 Days Ago History ~04/18/23 atorvastatin 40 mg tablet 40 mg PO BEDTIME 04/20/23 04/20/23 2 Days Ago History ~04/18/23 bisacodyl 5 mg tablet,delayed 10 mg PO DAILY PRN Constipation 04/20/23 04/20/23 Unknown History release cholecalciferol (vitamin D3) 50 50 mcg PO BEDTIME 04/20/23 04/20/23 2 Days Ago History mcg (2,000 unit) tablet ~04/18/23 docusate sodium 100 mg capsule 100 mg PO DAILY 04/20/23 04/20/23 2 Days Ago History (Colace) ~04/18/23 donepezil 10 mg tablet 10 mg PO DAILY 04/20/23 04/20/23 2 Days Ago History ~04/18/23 ipratropium bromide 42 mcg (0.06 1 spray intranasal DAILY 04/20/23 04/20/23 2 Days Ago History %) nasal spray ~04/18/23 lisinopril 10 mg tablet 10 mg PO DAILY 04/20/23 04/20/23 2 Days Ago History ~04/18/23 memantine 10 mg tablet 10 mg PO BID 04/20/23 04/20/23 2 Days Ago History ~04/18/23 metoprolol succinate 25 mg 25 mg PO DAILY 04/20/23 04/20/23 2 Days Ago History tablet,extended release 24 hr ~04/18/23 multivitamin 1 tab PO DAILY 04/20/23 04/20/23 2 Days Ago History ~04/18/23 naproxen sodium 220 mg tablet 220 mg PO Q8H PRN Pain 04/20/23 04/20/23 Unknown History (Aleve) sertraline 100 mg tablet 100 mg PO DAILY 04/20/23 04/20/23 2 Days Ago History ~04/18/23 Physical Exam Vital Signs: Vital Signs: Last Vital Signs Temp 97.8 F 04/21/23 07:05 Pulse 56 04/21/23 07:05 Resp 18 04/21/23 07:05 BP 161/68 H 04/21/23 07:05 Pulse Ox 96 04/21/23 07:05 O2 Del Method Room Air 04/21/23 07:05 BMI result Body Mass Index 34.1 Neuro: Other: Snoring. I was able to wake him up but he was very confused and agitated and having generalized myoclonic type of movements. He did not answer questions. Plantars were bilaterally extensor. Exam was limited. Results Labs 04/21/23 05:24 04/21/23 05:24 Labs: Short CBC 04/21/23 Range/Units 05:24 WBC 6.2 (4.8-10.8) X10*3/uL Hgb 11.7 L (14.0-18.0) g/dl Hct 33.8 L (42.0-52.0) % Plt Count 158 L D (160-400) X10*3/uL BMP 04/21/23 05:24 Sodium 141 Potassium 3.3 Chloride 111 H Carbon Dioxide 23 BUN 18 H Creatinine 0.[address] revealed moderate to severe cortical and central atrophy. Microbiology Microbiology Results: Microbiology 04/20/23 09:07 Blood - Venous Blood Culture - Preliminary No growth after 24 hours. 04/20/23 09:07 Blood - Venous Blood Culture - Preliminary No growth after 24 hours. Assessment and Plan (1) Toxic metabolic encephalopathy: Status: Acute 77 years old man who has significant degenerative changes on his CT scan of brain, which typically would result in dementia presently is going through colitis and associated metabolic toxic encephalopathy and change in mental status due to pain. At this time, treatment of abdominal issue is recommended. As far as his neurological status is concerned, once he is better, an outpatient consultation can be obtained. (2) Primary degenerative dementia: Status: Acute Procedures Date of Service Date of Service: 04/21/23
--- NOTE | 2023-04-21 14:49 | HO.PM.IMPN ---
Subjective Subjective Date of Service: 04/21/23 Interval History: seen and examined this morning follow up for colitis became dilirious, received multiple doses of benzos overnight, remains sleepy this am unable to provide any significant history Physical Exam Vital Signs: Vital Signs: Last Vital Signs Temp 97.8 F 04/21/23 07:05 Pulse 56 04/21/23 07:05 Resp 18 04/21/23 07:05 BP 161/68 H 04/21/23 07:05 Pulse Ox 96 04/21/23 07:05 O2 Del Method Room Air 04/21/23 07:05 BMI result Body Mass Index 34.1 Const: Other: sleepy, arousable to verbal stimuli, startles easily; falls back to sleep quickly Resp: Effort & Inspection: normal respiratory effort, able to speak in complete sentences, no respiratory distress and no use of accessory muscles Cardio: Rate: bradycardic GI: Other: +BS Inspection: No distended Palpation (GI): Soft to palpation Skin: Other: warm/dry Extrem: General: Yes no pedal edema Objective Data Active Medications Acetaminophen (Acetaminophen 325 Mg Tablet) 650 mg PO Q6H PRN PRN Reason: Pain, Mild (Pain Scale 1-3) Albuterol Sulfate (Albuterol Sulfate 90 Mcg 8 Gm Inhaler) 2 puff INHALE Q4H PRN PRN Reason: Shortness Of Breath Or Wheezing Aspirin (Aspirin 81 Mg Tab.Chew) 81 mg PO DAILY [facility] Last Admin: 04/21/23 10:46 Dose: Not Given Documented By: CARMEL Non-Admin Reason: Patient Condition Contraindication Atorvastatin Calcium (Atorvastatin Calcium 40 Mg Tablet) 40 mg PO BEDTIME [facility] Last Admin: 04/20/23 21:41 Dose: Not Given Documented By: ALICE Non-Admin Reason: Physician Approved Docusate Sodium (Docusate Sodium 100 Mg Capsule) 100 mg PO DAILY [facility] Last Admin: 04/21/23 10:46 Dose: Not Given Documented By: CARMEL Non-Admin Reason: Patient Condition Contraindication Donepezil HCl (Donepezil Hcl 10 Mg Tablet) 10 mg PO DAILY [facility] Last Admin: 04/21/23 10:46 Dose: Not Given Documented By: CARMEL Non-Admin Reason: Patient Condition Contraindication Enoxaparin Sodium (Enoxaparin Sodium 40 Mg/0.4 Ml Syringe) 40 mg SUBCUT Q24H [facility] Last Admin: 04/20/23 17:49 Dose: 40 mg Documented By: STEFANIA Piperacillin Sod/Tazobactam (Sod 3.375 gm/ Sodium Chloride) 50 mls @ 100 mls/hr IV Q6H [facility] Last Infusion: 04/21/23 10:05 Dose: Infused Documented By: CARMEL Lactated Ringer's (Lr) 1,000 mls @ 100 mls/hr IVCONT .Q10H [facility] Last Admin: 04/21/23 12:45 Dose: 100 mls/hr Documented By: CARMEL Ipratropium [place] (Ipratropium [place] 0.06 % 15 Ml [place]) 1 spray NOSTRIL-B DAILY [facility] Last Admin: 04/21/23 10:46 Dose: Not Given Documented By: CARMEL Non-Admin Reason: Patient Condition Contraindication Lisinopril (Lisinopril 10 Mg Tablet) 10 mg PO DAILY [facility]; Protocol Last Admin: 04/21/23 10:47 Dose: Not Given Documented By: CARMEL Non-Admin Reason: Patient Condition Contraindication Memantine (Memantine Hcl 10 Mg Tablet) 10 mg PO BID [facility] Last Admin: 04/21/23 10:47 Dose: Not Given Documented By: CARMEL Non-Admin Reason: Patient Condition Contraindication Metoprolol Succinate (Metoprolol Succinate Er 25 Mg Tab.Er.24h) 25 mg PO DAILY [facility]; Protocol Last Admin: 04/21/23 10:47 Dose: Not Given Documented By: CARMEL Non-Admin Reason: Patient Condition Contraindication Multivitamins/Vitamin C (Multivitamin Tablet) 1 tab PO DAILY [facility] Last Admin: 04/21/23 10:48 Dose: Not Given Documented By: CARMEL Non-Admin Reason: Patient Condition Contraindication Ondansetron HCl (Ondansetron Hcl 4 Mg/2 Ml Vial) 4 mg IVPUSH Q8H PRN PRN Reason: Nausea and Vomiting Sertraline HCl (Sertraline Hcl 100 Mg Tablet) 100 mg PO DAILY [facility] Last Admin: 04/21/23 10:48 Dose: Not Given Documented By: CARMEL Non-Admin Reason: Patient Condition Contraindication Sodium Chloride (0.9 % Sodium Chloride Flush 3 Ml Syringe) 3 ml IVFLUSH QSHIFT [facility] Last Admin: 04/21/23 09:54 Dose: 3 ml Documented By: CARMEL Vitamin D (Cholecalciferol (Vitamin D3) 25 Mcg Tablet) 50 mcg PO BEDTIME [facility] Last Admin: 04/20/23 21:41 Dose: Not Given Documented By: ALICE Non-Admin Reason: Physician Approved Labs 04/21/23 05:24 04/21/23 05:24 Labs: Laboratory Results - last 24 hr 04/21/23 05:24 MCV 85.4 MCH 29.5 MCHC 34.6 RDW 13.5 Plt Count 158 L D MPV 9.5 Immature Gran % (Auto) 0.6 H Neut % (Auto) 65.6 Lymph % (Auto) 14.8 L [place] % (Auto) 16.0 H Eos % (Auto) 2.7 Baso % (Auto) 0.3 Lymph # (Auto) 0.9 L [place] # (Auto) 1.0 Eos # (Auto) 0.2 Baso # (Auto) 0.0 Abs Immat Gran (auto) 0.04 H Absolute Neuts (auto) 4.1 Absolute Nucleated RBC 0.000 Nucleated RBC % (auto) 0.0 Anion Gap 10 L Estim Creat Clear Calc 89.9 Estimated GFR > 60 Random Glucose 97 Calcium 8.4 Microbiology Microbiology Results: Microbiology 04/20/23 09:07 Blood Culture - Preliminary Blood - Venous No growth after 24 hours. 04/20/23 09:07 Blood Culture - Preliminary Blood - Venous No growth after 24 hours. Assessment and Plan (1) Primary degenerative dementia: Status: Acute (2) Toxic metabolic encephalopathy: Status: Acute (3) Colitis: Status: Acute Plan This is a 77-year-old male with history of coronary artery disease, dementia who presents to the emergency department with weakness and N/V/D found to have colitis acute colitis vs gastroenteritis CT with severe distention of colon with gas and liquid stool pt with N/V/D check stool studies, rule out cdif IV zosyn clear liquids, advance as tolerated acute metabolic encephalopathy due to acute illness above on a background of dementia, unspecified treat underlying illness frequent re-orientation got a dose of seroquel for increasing agitation, then began having unusual body movements ?choreoahtetosis. this seems to have improved at this time. neuro rec to avoid all antipsychotic meds CT scan of brain with significant degenerative changes on CT. no further neurological work up required at this time dementia unspecified, likely Alzheimer's continue namenda, aricept CAD no chest pain continue asa, BB, statin HTN continue lisinorpril, metroprolol Mood continue sertraline DVT ppx - lovenox code status - changed to DNR/DNI overnight per senior ios developer HCP - will need PT eval when able to participate Given confusion and colitis, will likely require two midnight stay in the hospital for treatment with IV antitibiotics, safe disposition Quality Stroke Does the patient have a stroke diagnosis?: No VTE Prior VTE?: No VTE Risk Level:: Medical - moderate - high VTE Device Contraindication: Treatment Not Indicated VTE Drug Contraindication: N/A - Med Ordered
[2023-04-21 15:19] VITALS: BP 169/77; PULSE 59; RESP 18; TEMP 36.6; O2SAT 93
[2023-04-21] MEDS: Enoxaparin Sodium 40 MG/0.4 ML SYRINGE SUBCUT (18:38)
[2023-04-21 19:42] VITALS: BP 163/72; PULSE 68; RESP 18; TEMP 36.4; O2SAT 94
[2023-04-21] MEDS: Memantine HCl 10 MG TABLET PO (21:20)
[2023-04-21] MEDS: Atorvastatin Calcium 40 MG TABLET PO (21:20)
[2023-04-21] MEDS: Cholecalciferol (Vitamin D3) 25 MCG TABLET 50 MCG PO (21:20)
[2023-04-21] MEDS: Midazolam HCl/PF 2 MG/2 ML VIAL IVPUSH (22:51)
[2023-04-21] MEDS: LORazepam 2 MG/ML VIAL IM (23:57)
[2023-04-22] MEDS: Lactated Ringers 1,000 ML 100 ML IVCONT ×3 (01:13→12:41)
[2023-04-22 01:19] VITALS: PULSE 80; RESP 16
[2023-04-22] MEDS: diazePAM 10 MG/2 ML CARTRIDGE IVPUSH ×2 (02:08→22:10)
[2023-04-22] MEDS: Piperacillin Sodium/Tazobactam 3.375 GM in 0.9 % Sodium Chloride 50 ML IV ×4 (02:09→20:40)
[2023-04-22 07:25] VITALS: BP 170/70; PULSE 60; RESP 20; TEMP 36.4; O2SAT 94
[2023-04-22] MEDS: lisinopriL 10 MG TABLET PO (09:15)
[2023-04-22] MEDS: Donepezil HCl 10 MG TABLET PO (09:15)
[2023-04-22] MEDS: 0.9 % Sodium Chloride Flush 3 ML SYRINGE IVFLUSH (09:15)
[2023-04-22] MEDS: Metoprolol Succinate ER 25 MG TAB.ER.24H PO (09:15)
[2023-04-22] MEDS: Docusate Sodium 100 MG CAPSULE PO (09:15)
[2023-04-22] MEDS: Aspirin 81 MG TAB.CHEW PO (09:15)
[2023-04-22] MEDS: Multivitamin TABLET 1 TAB PO (09:16)
[2023-04-22] MEDS: Sertraline HCL 100 MG TABLET PO (09:16)
[2023-04-22] MEDS: Memantine HCl 10 MG TABLET PO ×2 (09:16→19:33)
--- NOTE | 2023-04-22 10:10 | HO.PM.IMPN ---
Subjective Subjective Date of Service: 04/22/23 Interval History: follow up for colitis became delirious, received multiple doses of benzos overnight, remains sleepy this am unable to provide any significant history Physical Exam Vital Signs: Vital Signs: Last Vital Signs Temp 97.6 F 04/22/23 07:25 Pulse 60 04/22/23 07:25 Resp 20 04/22/23 07:25 BP 170/70 H 04/22/23 07:25 Pulse Ox 94 04/22/23 07:25 O2 Del Method Room Air 04/22/23 07:25 BMI result Body Mass Index 34.1 Appearing in no acute distress lung sounds are clear to auscultation heart regular rate rhythm, clear S1, S2 positive bowel sounds, abdomen is soft, nontender neuro patient is alert, confused Objective Data Active Medications Acetaminophen (Acetaminophen 325 Mg Tablet) 650 mg PO Q6H PRN PRN Reason: Pain, Mild (Pain Scale 1-3) Albuterol Sulfate (Albuterol Sulfate 90 Mcg 8 Gm Inhaler) 2 puff INHALE Q4H PRN PRN Reason: Shortness Of Breath Or Wheezing Aspirin (Aspirin 81 Mg Tab.Chew) 81 mg PO DAILY [facility] Last Admin: 04/22/23 09:15 Dose: 81 mg Documented By: LORNE Atorvastatin Calcium (Atorvastatin Calcium 40 Mg Tablet) 40 mg PO BEDTIME [facility] Last Admin: 04/21/23 21:20 Dose: 40 mg Documented By: GALEN Docusate Sodium (Docusate Sodium 100 Mg Capsule) 100 mg PO DAILY [facility] Last Admin: 04/22/23 09:15 Dose: 100 mg Documented By: LORNE Donepezil HCl (Donepezil Hcl 10 Mg Tablet) 10 mg PO DAILY [facility] Last Admin: 04/22/23 09:15 Dose: 10 mg Documented By: LORNE Enoxaparin Sodium (Enoxaparin Sodium 40 Mg/0.4 Ml Syringe) 40 mg SUBCUT Q24H [facility] Last Admin: 04/21/23 18:38 Dose: 40 mg Documented By: GALEN Piperacillin Sod/Tazobactam (Sod 3.375 gm/ Sodium Chloride) 50 mls @ 100 mls/hr IV Q6H [facility] Last Infusion: 04/22/23 09:44 Dose: Infused Documented By: LOREN Lactated Ringer's (Lr) 1,000 mls @ 100 mls/hr IVCONT .Q10H [facility] Last Admin: 04/22/23 09:15 Dose: 100 mls/hr Documented By: LORNE Ipratropium [place] (Ipratropium [place] 0.06 % 15 Ml [place]) 1 spray NOSTRIL-B DAILY [facility] Last Admin: 04/22/23 10:05 Dose: Not Given Documented By: LORNE Non-Admin Reason: Med Not Available Lisinopril (Lisinopril 10 Mg Tablet) 10 mg PO DAILY [facility]; Protocol Last Admin: 04/22/23 09:15 Dose: 10 mg Documented By: LORNE Memantine (Memantine Hcl 10 Mg Tablet) 10 mg PO BID [facility] Last Admin: 04/22/23 09:16 Dose: 10 mg Documented By: LORNE Metoprolol Succinate (Metoprolol Succinate Er 25 Mg Tab.Er.24h) 25 mg PO DAILY [facility]; Protocol Last Admin: 04/22/23 09:15 Dose: 25 mg Documented By: LORNE Multivitamins/Vitamin C (Multivitamin Tablet) 1 tab PO DAILY [facility] Last Admin: 04/22/23 09:16 Dose: 1 tab Documented By: LORNE Ondansetron HCl (Ondansetron Hcl 4 Mg/2 Ml Vial) 4 mg IVPUSH Q8H PRN PRN Reason: Nausea and Vomiting Sertraline HCl (Sertraline Hcl 100 Mg Tablet) 100 mg PO DAILY [facility] Last Admin: 04/22/23 09:16 Dose: 100 mg Documented By: LORNE Sodium Chloride (0.9 % Sodium Chloride Flush 3 Ml Syringe) 3 ml IVFLUSH QSHIFT [facility] Last Admin: 04/22/23 09:15 Dose: 3 ml Documented By: LORNE Vitamin D (Cholecalciferol (Vitamin D3) 25 Mcg Tablet) 50 mcg PO BEDTIME [facility] Last Admin: 04/21/23 21:20 Dose: 50 mcg Documented By: GALEN Labs 04/21/23 05:24 04/21/23 05:24 Microbiology Microbiology Results: Microbiology 04/20/23 09:07 Blood Culture - Preliminary Blood - Venous No growth after 24 hours. 04/20/23 09:07 Blood Culture - Preliminary Blood - Venous No growth after 24 hours. Assessment and Plan (1) Primary degenerative dementia: Status: Acute (2) Toxic metabolic encephalopathy: Status: Acute (3) Colitis: Status: Acute Plan 77-year-old male with history of coronary artery disease, dementia who presents to the emergency department with weakness and N/V/D found to have colitis Acute colitis vs gastroenteritis CT with severe distention of colon with gas and liquid stool check stool studies, rule out cdif IV zosyn clear liquids, advance as tolerated Acute metabolic encephalopathy due to acute illness above on a background of dementia, unspecified treat underlying illness frequent re-orientation got a dose of seroquel for increasing agitation, then began having unusual body movements ?choreoahtetosis. this seems to have improved at this time. neuro rec to avoid all antipsychotic meds CT scan of brain with significant degenerative changes on CT. no further neurological work up required at this time PT consult and OOB to chair Dementia unspecified, likely Alzheimer's continue namenda, aricept CAD no chest pain continue asa, BB, statin HTN continue lisinorpril, metroprolol Mood continue sertraline DVT ppx - lovenox code status - changed to DNR/DNI overnight per plater supervisor HCP - Given confusion and colitis, will likely require two midnight stay in the hospital for treatment with IV antitibiotics, safe disposition Quality Stroke Does the patient have a stroke diagnosis?: No VTE Prior VTE?: No VTE Risk Level:: Medical - moderate - high VTE Device Contraindication: Treatment Not Indicated VTE Drug Contraindication: N/A - Med Ordered
[2023-04-22 15:29] VITALS: BP 170/73; PULSE 70; RESP 20; TEMP 36.8; O2SAT 94
[2023-04-22] MEDS: Enoxaparin Sodium 40 MG/0.4 ML SYRINGE SUBCUT (17:38)
[2023-04-22] MEDS: LORazepam 2 MG/ML VIAL 0.5 MG IVPUSH (17:41)
[2023-04-22] MEDS: Cholecalciferol (Vitamin D3) 25 MCG TABLET 50 MCG PO (19:33)
[2023-04-22] MEDS: Atorvastatin Calcium 40 MG TABLET PO (19:33)
--- NOTE | 2023-04-22 19:49 | PC.NURSE ---
after ativan iv dose at 1741 pt is still restless but cooperative took medications with natanael
[2023-04-22 19:52] VITALS: TEMP 36.6
[2023-04-23] MEDS: Piperacillin Sodium/Tazobactam 3.375 GM in 0.9 % Sodium Chloride 50 ML IV ×4 (02:34→20:17)
[2023-04-23 07:48] VITALS: BP 170/72; PULSE 40; RESP 20; TEMP 36.4; O2SAT 94
[2023-04-23] MEDS: 0.9 % Sodium Chloride Flush 3 ML SYRINGE IVFLUSH ×3 (08:37→20:15)
--- NOTE | 2023-04-23 08:59 | P.PNIM_ITS ---
Subjective Subjective Date of Service: 04/23/23 Interval History: follow up for colitis had a better nightm, no sitter unable to provide any significant history Physical Exam 2 Vital Signs: Vital Signs: Last Vital Signs Temp 97.6 F 04/23/23 07:48 Pulse 40 L 04/23/23 07:48 Resp 20 04/23/23 07:48 BP 170/72 H 04/23/23 07:48 Pulse Ox 94 04/23/23 07:48 O2 Del Method Room Air 04/23/23 07:48 BMI result Body Mass Index 34.1 Appearing in no acute distress lung sounds are clear to auscultation heart regular rate rhythm, clear S1, S2 positive bowel sounds, abdomen is soft, nontender neuro patient is alert, confused Objective Data Active Medications Acetaminophen (Acetaminophen 325 Mg Tablet) 650 mg PO Q6H PRN PRN Reason: Pain, Mild (Pain Scale 1-3) Albuterol Sulfate (Albuterol Sulfate 90 Mcg 8 Gm Inhaler) 2 puff INHALE Q4H PRN PRN Reason: Shortness Of Breath Or Wheezing Aspirin (Aspirin 81 Mg Tab.Chew) 81 mg PO DAILY [facility] Last Admin: 04/22/23 09:15 Dose: 81 mg Documented By: LORNE Atorvastatin Calcium (Atorvastatin Calcium 40 Mg Tablet) 40 mg PO BEDTIME [facility] Last Admin: 04/22/23 19:33 Dose: 40 mg Documented By: GALEN Docusate Sodium (Docusate Sodium 100 Mg Capsule) 100 mg PO DAILY [facility] Last Admin: 04/22/23 09:15 Dose: 100 mg Documented By: LORNE Donepezil HCl (Donepezil Hcl 10 Mg Tablet) 10 mg PO DAILY [facility] Last Admin: 04/22/23 09:15 Dose: 10 mg Documented By: LORNE Enoxaparin Sodium (Enoxaparin Sodium 40 Mg/0.4 Ml Syringe) 40 mg SUBCUT Q24H [facility] Last Admin: 04/22/23 17:38 Dose: 40 mg Documented By: SHERRY Piperacillin Sod/Tazobactam (Sod 3.375 gm/ Sodium Chloride) 50 mls @ 100 mls/hr IV Q6H [facility] Last Admin: 04/23/23 08:35 Dose: 100 mls/hr Documented By: NATALIE Ipratropium [place] (Ipratropium [place] 0.06 % 15 Ml [place]) 1 spray NOSTRIL-B DAILY [facility] Last Admin: 04/22/23 10:05 Dose: Not Given Documented By: LORNE Non-Admin Reason: Med Not Available Lisinopril (Lisinopril 10 Mg Tablet) 10 mg PO DAILY [facility]; Protocol Last Admin: 04/22/23 09:15 Dose: 10 mg Documented By: LORNE Lorazepam (Lorazepam 2 Mg/Ml Vial) 0.5 mg IVPUSH Q6H PRN PRN Reason: Anxiety Last Admin: 04/22/23 17:41 Dose: 0.5 mg Documented By: SHERRY Memantine (Memantine Hcl 10 Mg Tablet) 10 mg PO BID [facility] Last Admin: 04/22/23 19:33 Dose: 10 mg Documented By: GALEN Metoprolol Succinate (Metoprolol Succinate Er 25 Mg Tab.Er.24h) 25 mg PO DAILY [facility]; Protocol Last Admin: 04/22/23 09:15 Dose: 25 mg Documented By: LORNE Multivitamins/Vitamin C (Multivitamin Tablet) 1 tab PO DAILY [facility] Last Admin: 04/22/23 09:16 Dose: 1 tab Documented By: LORNE Ondansetron HCl (Ondansetron Hcl 4 Mg/2 Ml Vial) 4 mg IVPUSH Q8H PRN PRN Reason: Nausea and Vomiting Sertraline HCl (Sertraline Hcl 100 Mg Tablet) 100 mg PO DAILY [facility] Last Admin: 04/22/23 09:16 Dose: 100 mg Documented By: LORNE Sodium Chloride (0.9 % Sodium Chloride Flush 3 Ml Syringe) 3 ml IVFLUSH QSHIFT [facility] Last Admin: 04/23/23 08:37 Dose: 3 ml Documented By: NATALIE Vitamin D (Cholecalciferol (Vitamin D3) 25 Mcg Tablet) 50 mcg PO BEDTIME [facility] Last Admin: 04/22/23 19:33 Dose: 50 mcg Documented By: GALEN Labs 04/23/23 09:18 04/21/23 05:24 Microbiology Microbiology Results: Microbiology 04/20/23 09:07 Blood Culture - Preliminary Blood - Venous No growth after 48 hours. 04/20/23 09:07 Blood Culture - Preliminary Blood - Venous No growth after 48 hours. Assessment and Plan (1) Primary degenerative dementia: Status: Acute (2) Toxic metabolic encephalopathy: Status: Acute (3) Colitis: Status: Acute Plan 77-year-old male with history of coronary artery disease, dementia who presents to the emergency department with weakness and N/V/D found to have colitis Acute colitis vs gastroenteritis CT with severe distention of colon with gas and liquid stool check stool studies, rule out cdif (no stool, will cancel) IV zosyn advance diet Acute metabolic encephalopathy due to acute illness above on a background of dementia, unspecified treat underlying illness frequent re-orientation got a dose of seroquel for increasing agitation, then began having unusual body movements ?choreoahtetosis. this seems to have improved at this time. neuro rec to avoid all antipsychotic meds CT scan of brain with significant degenerative changes on CT. no further neurological work up required at this time PT consult rec> STR, will discuss with spouse OOB to chair Dementia unspecified, likely Alzheimer's continue namenda, aricept CAD no chest pain continue asa, BB, statin HTN continue lisinorpril, metroprolol Mood continue sertraline DVT ppx - lovenox Attending Dr. Mcdonald DNR Given confusion and colitis, will likely require two midnight stay in the hospital for treatment with IV antitibiotics, safe disposition Quality Stroke Does the patient have a stroke diagnosis?: No VTE Prior VTE?: No VTE Risk Level:: Medical - moderate - high VTE Device Contraindication: Treatment Not Indicated VTE Drug Contraindication: N/A - Med Ordered
[2023-04-23 09:54] LABS: Hematocrit 34.4 % (42.0-52.0); Hemoglobin 11.8 g/dl (14.0-18.0); Mean Corpuscular HGB Conc 34.3 g/dl (31.0-36.0); Mean Corpuscular Hemoglobin 29.5 pg (27.0-33.0); Platelet Count 184 X10*3/uL (160-400); Red Cell Distribution Width 13.3 % (11.0-16.0); White Blood Count 6.7 X10*3/uL (4.8-10.8)
[2023-04-23] MEDS: Sertraline HCL 100 MG TABLET PO (10:45)
[2023-04-23] MEDS: lisinopriL 10 MG TABLET PO (10:45)
[2023-04-23] MEDS: Multivitamin TABLET 1 TAB PO (10:45)
[2023-04-23] MEDS: Aspirin 81 MG TAB.CHEW PO (10:46)
[2023-04-23] MEDS: Docusate Sodium 100 MG CAPSULE PO (10:46)
[2023-04-23] MEDS: Donepezil HCl 10 MG TABLET PO (10:46)
[2023-04-23] MEDS: Memantine HCl 10 MG TABLET PO (10:46)
[2023-04-23 15:01] LABS: Venous Blood Gas Refer to POC result
[2023-04-23 15:02] LABS: VBG Base Excess 3.5 mmol/L; VBG HCO3 26 mmol/L (22-26); VBG pCO2 36 mmHg; VBG pH 7.47 (7.32-7.43); VBG pO2 58 mmHg
[2023-04-23 16:00] VITALS: BP 164/77; PULSE 59; RESP 18; TEMP 36.4; O2SAT 92
[2023-04-23] MEDS: Enoxaparin Sodium 40 MG/0.4 ML SYRINGE SUBCUT (17:40)
[2023-04-23 19:29] VITALS: BP 133/63; PULSE 58; RESP 19; TEMP 36.4; O2SAT 93
[2023-04-23 19:55] LABS: CDiff Gene PCR NEGATIVE (Negative)
[2023-04-23] MEDS: Cholecalciferol (Vitamin D3) 25 MCG TABLET 50 MCG PO (20:02)
[2023-04-23] MEDS: Atorvastatin Calcium 40 MG TABLET PO (20:02)
--- NOTE | 2023-04-23 22:59 | PC.NURSE ---
Pt bladder scan for 443ml @ 22:10. MD Escobar notified and ordered straight cath. Pt straight cath @ 22:35 for 300ml dark urine in bag. While inserting the straight cath pt had episode of urine incontinence and voided dark yellow urine. Pt re-bladder scan for 0ml. Pt was encourage to use the urinal at bedside when needed. Will continue to monitor pt's urine output.
[2023-04-24] MEDS: LORazepam 2 MG/ML VIAL 0.5 MG IVPUSH ×3 (02:45→23:30)
[2023-04-24] MEDS: Piperacillin Sodium/Tazobactam 3.375 GM in 0.9 % Sodium Chloride 50 ML IV ×4 (02:50→21:10)
[2023-04-24 04:00] VITALS: TEMP 36.6; O2SAT 89
[2023-04-24] MEDS: diazePAM 10 MG/2 ML CARTRIDGE 5 MG IVPUSH (04:20)
[2023-04-24 04:27] VITALS: PULSE 69; RESP 18; TEMP 36.6; O2SAT 95
[2023-04-24] MEDS: LORazepam 2 MG/ML VIAL 1 MG IVPUSH (06:03)
--- NOTE | 2023-04-24 07:13 | PC.NURSE ---
Approximately after 02:00, pt became restless, confused, and climbing out of bed. While being redirected, pt started being aggressive, kicking and yelling at staff. PRN Ativan was given to pt per MAY with no effect. After the PRN Ativan, pt was still restless, climbing out of bed, and combative with staff. Pt became SOB and wheezing. Security was called to bedside. MD Escobar was notified of the situation. One time dose of Valium was given to pt per MAY with no effect. O2 was ordered and 2L O2 was placed on pt via NC. O2 sat at 95% on 2L. Pt continued climbing out of bed and being combative with staff while being redirected to stay in bed. Security was called to pt's bedside an 2nd time. MD Esocbar notified again of the pt's behavior. One time dose of Ativan was given to pt per MAY with minimal effect. Will continue to monitor pt's behavior.
[2023-04-24 08:00] VITALS: BP 160/60; PULSE 56; RESP 18; TEMP 36.1; O2SAT 93
[2023-04-24 08:11] LABS: Hemoglobin 12.2 g/dl (14.0-18.0); Mean Corpuscular HGB Conc 34.9 g/dl (31.0-36.0); Mean Corpuscular Hemoglobin 29.8 pg (27.0-33.0); Mean Corpuscular Volume 85.4 fL (80.0-98.0); Mean Platelet Volume 9.3 fL (9.4-12.4); Platelet Count 196 X10*3/uL (160-400); Red Cell Distribution Width 13.2 % (11.0-16.0); White Blood Count 9.1 X10*3/uL (4.8-10.8)
[2023-04-24 08:27] LABS: Anion Gap 11 (12-20); Blood Urea Nitrogen 18 mg/dL (9-16); Calcium 8.2 mg/dL (8.4-10.2); Carbon Dioxide 24 mmol/L (22-29); Chloride 110 mmol/L (96-108); Creatinine Clr Calc Pharmacy 86.8; Estimated Glomerular Filt Rate > 60; Glucose Random 101 mg/dL (60-115); Potassium 3.2 mmol/L (3.3-5.1); Sodium 142 mmol/L (135-145)
[2023-04-24] MEDS: 0.9 % Sodium Chloride Flush 3 ML SYRINGE IVFLUSH ×2 (08:43→19:48)
[2023-04-24] MEDS: Metoprolol Succinate ER 25 MG TAB.ER.24H PO (08:45)
[2023-04-24] MEDS: Multivitamin TABLET 1 TAB PO (08:45)
[2023-04-24] MEDS: lisinopriL 10 MG TABLET PO (08:45)
[2023-04-24] MEDS: Aspirin 81 MG TAB.CHEW PO (08:45)
[2023-04-24 08:55] LABS: Ammonia 30 umol/L (13-55)
[2023-04-24 11:09] LABS: Adenovirus F 40/41 Not Detected (Not Detect.); Astrovirus Not Detected (Not Detect.); Campylobacter Not Detected (Not Detect.); Cryptosporidium Not Detected (Not Detect.); Cyclospora cayetanensis Not Detected (Not Detect.); E. coli EAEC Not Detected (Not Detect.); E. coli EPEC Not Detected (Not Detect.); E. coli ETEC Not Detected (Not Detect.); E. coli STEC Not Detected (Not Detect.); Entamoeba histolytica Not Detected (Not Detect.); Giardia lamblia Not Detected (Not Detect.); Norovirus GI/GII Not Detected (Not Detect.); Plesiomonas shigelloides Not Detected (Not Detect.); Rotavirus A Not Detected (Not Detect.); Salmonella Not Detected (Not Detect.); Sapovirus Not Detected (Not Detect.); Shigella sp./EIEC Not Detected (Not Detect.); Vibrio Not Detected (Not Detect.); Vibrio Cholerae Not Detected (Not Detect.); Yersinia enterocolitica Not Detected (Not Detect.)
--- NOTE | 2023-04-24 11:24 | CONS_ITS ---
DATE OF SERVICE: 04/24/2023 REFERRING PHYSICIAN: Ondina Armstrong NP REASON FOR CONSULTATION: Abnormal CT scan of the colon. HISTORY OF PRESENT ILLNESS: The patient is a pleasantly confused 77-year-old man, who was admitted to the hospital on April 20, with weakness, nausea, vomiting, and diarrhea; which began after eating a sandwich. There was no reported fever, chills or abdominal pain. He was evaluated in the emergency department with CT scanning, which was reviewed. This shows colonic distention with gas and liquid stool, but without evidence of wall thickening or pericolonic inflammatory changes since admission. Laboratory studies have remained stable with no evidence of GI bleeding. Stool specimens have been obtained and a GI panel is pending. C. diff testing has been negative. The patient is unsure of his last colonoscopy and records are not available. PAST MEDICAL HISTORY: 1. Dementia. 2. Coronary artery disease. CURRENT MEDICATIONS: Current medication list is reviewed in the chart. He is currently being treated with antibiotics. ALLERGIES: THERE ARE NONE REPORTED. FAMILY HISTORY: Not obtainable from the patient and reviewed in the chart. SOCIAL HISTORY: Not obtainable from the patient and reviewed in the chart. REVIEW OF SYSTEMS: Not obtainable from the patient and reviewed in the chart. PHYSICAL EXAMINATION: GENERAL: Shows a pleasant male, lying in bed, watching television. He is not oriented to time or place. SKIN: Anicteric. HEENT: Shows no scleral icterus. NECK: Without lymphadenopathy or thyromegaly. LUNGS: Clear. HEART: Shows regular rate and rhythm. S1, S2. No murmur. ABDOMEN: Soft without focal masses or tenderness. Bowel sounds are present. No organomegaly is noted. EXTREMITIES: Without edema. LABORATORY DATA AND IMAGING STUDIES: Reviewed. IMPRESSION: Nausea, vomiting, and diarrhea with abnormal CT scan. He does not appear to have colitis as there is no wall thickening of the colon or pericolonic inflammatory change, which is typical with colitis. He may have had a viral gastroenteritis or mild food poisoning from something he ate. Stool studies are pending and if these are negative, I think antibiotics can be discontinued. I would continue supportive care with antiemetics as needed. Thanks for asking me to see him. I will follow him in the hospital with you. MD JOSEPH Loo/KILEY / [phone]
--- NOTE | 2023-04-24 12:05 | HO.PM.IMPN ---
Subjective Subjective Date of Service: 04/24/23 Interval History: follow up for colitis had a better night, no sitter unable to provide any significant history Physical Exam Vital Signs: Vital Signs: Last Vital Signs Temp 97.0 F 04/24/23 08:00 Pulse 56 04/24/23 08:00 Resp 18 04/24/23 08:00 BP 160/60 H 04/24/23 08:00 Pulse Ox 93 04/24/23 08:00 O2 Del Method Room Air 04/24/23 08:00 O2 Flow Rate 2 04/24/23 04:27 BMI result Body Mass Index 34.1 Appearing in no acute distress lung sounds are clear to auscultation heart regular rate rhythm, clear S1, S2 positive bowel sounds, abdomen is soft, nontender neuro patient is alert, confused Objective Data Active Medications Acetaminophen (Acetaminophen 325 Mg Tablet) 650 mg PO Q6H PRN PRN Reason: Pain, Mild (Pain Scale 1-3) Albuterol Sulfate (Albuterol Sulfate 90 Mcg 8 Gm Inhaler) 2 puff INHALE Q4H PRN PRN Reason: Shortness Of Breath Or Wheezing Aspirin (Aspirin 81 Mg Tab.Chew) 81 mg PO DAILY [facility] Last Admin: 04/24/23 08:45 Dose: 81 mg Documented By: NATALIE Atorvastatin Calcium (Atorvastatin Calcium 40 Mg Tablet) 40 mg PO BEDTIME [facility] Last Admin: 04/23/23 20:02 Dose: 40 mg Documented By: KERA Docusate Sodium (Docusate Sodium 100 Mg Capsule) 100 mg PO DAILY [facility] Last Admin: 04/24/23 08:46 Dose: Not Given Documented By: NATALIE Non-Admin Reason: loose stool Donepezil HCl (Donepezil Hcl 10 Mg Tablet) 10 mg PO DAILY [facility] Last Admin: 04/23/23 10:46 Dose: 10 mg Documented By: NATALIE Enoxaparin Sodium (Enoxaparin Sodium 40 Mg/0.4 Ml Syringe) 40 mg SUBCUT Q24H [facility] Last Admin: 04/23/23 17:40 Dose: 40 mg Documented By: NATALIE Piperacillin Sod/Tazobactam (Sod 3.375 gm/ Sodium Chloride) 50 mls @ 100 mls/hr IV Q6H [facility] Last Infusion: 04/24/23 09:20 Dose: Infused Documented By: NATALIE Ipratropium [place] (Ipratropium [place] 0.06 % 15 Ml [place]) 1 spray NOSTRIL-B DAILY [facility] Last Admin: 04/24/23 08:46 Dose: Not Given Documented By: NATALIE Non-Admin Reason: Med Not Available Lisinopril (Lisinopril 10 Mg Tablet) 10 mg PO DAILY [facility]; Protocol Last Admin: 04/24/23 08:45 Dose: 10 mg Documented By: NATALIE Lorazepam (Lorazepam 2 Mg/Ml Vial) 0.5 mg IVPUSH Q6H PRN PRN Reason: Anxiety Last Admin: 04/24/23 02:45 Dose: 0.5 mg Documented By: KERA Memantine (Memantine Hcl 10 Mg Tablet) 10 mg PO BID [facility] Last Admin: 04/23/23 10:46 Dose: 10 mg Documented By: NATALIE Metoprolol Succinate (Metoprolol Succinate Er 25 Mg Tab.Er.24h) 25 mg PO DAILY [facility]; Protocol Last Admin: 04/24/23 08:45 Dose: 25 mg Documented By: NATALIE Multivitamins/Vitamin C (Multivitamin Tablet) 1 tab PO DAILY [facility] Last Admin: 04/24/23 08:45 Dose: 1 tab Documented By: NATALIE Ondansetron HCl (Ondansetron Hcl 4 Mg/2 Ml Vial) 4 mg IVPUSH Q8H PRN PRN Reason: Nausea and Vomiting Polyethylene Glycol (Polyethylene Glycol 3350 17 Gm Powd.Pack) 17 gm PO DAILY [facility] Last Admin: 04/24/23 08:46 Dose: Not Given Documented By: NATALIE Non-Admin Reason: loose stool Sertraline HCl (Sertraline Hcl 100 Mg Tablet) 100 mg PO DAILY [facility] Last Admin: 04/23/23 10:45 Dose: 100 mg Documented By: NATALIE Sodium Chloride (0.9 % Sodium Chloride Flush 3 Ml Syringe) [facility] Last Admin: 04/24/23 08:43 Dose: 3 ml Documented By: NATALIE Vitamin D (Cholecalciferol (Vitamin D3) 25 Mcg Tablet) 50 mcg PO BEDTIME [facility] Last Admin: 04/23/23 20:02 Dose: 50 mcg Documented By: KERA Labs 04/24/23 07:54 04/24/23 07:54 Labs: Laboratory Results - last 24 hr 04/23/23 04/23/23 04/24/23 14:56 18:10 07:54 MCV 85.4 MCH 29.8 MCHC 34.9 RDW 13.2 Plt Count 196 MPV 9.3 L Absolute Nucleated RBC 0.000 Nucleated RBC % (auto) 0.0 VBG pH 7.47 H VBG pCO2 36 VBG pO2 58 VBG HCO3 26 VBG O2 Saturation 89.0 VBG Base Excess 3.5 Anion Gap 11 L Estim Creat Clear Calc 86.8 Estimated GFR > 60 Random Glucose 101 Calcium 8.2 L Ammonia Stl C. cayetanensis PCR Not Detected Stool Rotavirus A PCR Not Detected Stl Adenov F 40/41 PCR Not Detected Stool Astrovirus (PCR) Not Detected Stool Campylobacter PCR Not Detected Stool Cryptosporidium PCR Not Detected Stl Sh Tox Pr E STEC PCR Not Detected Stool E coli O157 PCR Not applicable Stl Enterotoxigenic E PCR Not Detected Stool EPEC (PCR) Not Detected Stool EAEC (PCR) Not Detected Stl E. histolytica PCR Not Detected Stool Giardia Lamblia PCR Not Detected Stl P. shigelloides PCR Not Detected Stool Salmonella PCR Not Detected Stool Sapovirus (PCR) Not Detected Stl Shigella/EIEC PCR Not Detected St Y.enterocolitica PCR Not Detected Stool Vibrio (PCR) Not Detected Stl Vibrio cholerae PCR Not Detected Stl Norovirus GI/GII PCR Not Detected C. difficile Tox B Gene NEGATIVE 04/24/23 08:25 MCV MCH MCHC RDW Plt Count MPV Absolute Nucleated RBC Nucleated RBC % (auto) VBG pH VBG pCO2 VBG pO2 VBG HCO3 VBG O2 Saturation VBG Base Excess Anion Gap Estim Creat Clear Calc Estimated GFR Random Glucose Calcium Ammonia 30 Stl C. cayetanensis PCR Stool Rotavirus A PCR Stl Adenov F 40/41 PCR Stool Astrovirus (PCR) Stool Campylobacter PCR Stool Cryptosporidium PCR Stl Sh Tox Pr E STEC PCR Stool E coli O157 PCR Stl Enterotoxigenic E PCR Stool EPEC (PCR) Stool EAEC (PCR) Stl E. histolytica PCR Stool Giardia Lamblia PCR Stl P. shigelloides PCR Stool Salmonella PCR Stool Sapovirus (PCR) Stl Shigella/EIEC PCR St Y.enterocolitica PCR Stool Vibrio (PCR) Stl Vibrio cholerae PCR Stl Norovirus GI/GII PCR C. difficile Tox B Gene Assessment and Plan (1) Primary degenerative dementia: Status: Acute (2) Toxic metabolic encephalopathy: Status: Acute (3) Colitis: Status: Acute Plan 77-year-old male with history of coronary artery disease, dementia who presents to the emergency department with weakness and N/V/D found to have colitis Acute colitis vs gastroenteritis CT with severe distention of colon with gas and liquid stool check stool studies, rule out cdif (no stool, will cancel) IV zosyn advance diet Acute metabolic encephalopathy due to acute illness above on a background of dementia, unspecified treat underlying illness frequent re-orientation got a dose of seroquel for increasing agitation, then began having unusual body movements ?choreoahtetosis. this seems to have improved at this time. neuro rec to avoid all antipsychotic meds CT scan of brain with significant degenerative changes on CT. no further neurological work up required at this time PT consult rec> STR, will discuss with spouse OOB to chair Dementia unspecified, likely Alzheimer's continue namenda, aricept CAD no chest pain continue asa, BB, statin HTN continue lisinorpril, metroprolol Mood continue sertraline DVT ppx - lovenox Attending Dr. Mcdonald DNR Given confusion and colitis, will likely require two midnight stay in the hospital for treatment with IV antitibiotics, safe disposition Quality Stroke Does the patient have a stroke diagnosis?: No VTE Prior VTE?: No VTE Risk Level:: Medical - moderate - high VTE Device Contraindication: Treatment Not Indicated VTE Drug Contraindication: N/A - Med Ordered
[2023-04-24 15:24] VITALS: BP 154/68; PULSE 63; RESP 18; TEMP 36.2; O2SAT 95
--- NOTE | 2023-04-24 18:22 | PC.NURSE ---
at approximately 1745 pt increasingly anxious, attempting to get out of bed, combative and aggressive with staff, unable to be verbally redirected. Environmental stimuli reduced in room with no effect. Security called for assistance with behaviors. 0.5mg IV ativan given for increased anxiety-refer to [facility] for admin documentation. Pt currently resting comfortably, respirations 16, even and unlabored. Ondina Armstrong made aware.
[2023-04-24 19:11] VITALS: BP 158/64; PULSE 61; RESP 17; TEMP 36.8; O2SAT 94
[2023-04-24] MEDS: Cholecalciferol (Vitamin D3) 25 MCG TABLET 50 MCG PO (19:47)
[2023-04-24] MEDS: Valproic Acid (as Sodium Salt) 500 MG in Dextrose 5 % 50 ML 55 MG IV (19:47)
[2023-04-24] MEDS: Atorvastatin Calcium 40 MG TABLET PO (19:47)
--- NOTE | 2023-04-25 | ECG_ITS ---
Test Reason : bradycardia Blood Pressure : / mmHG Vent. Rate : 045 BPM Atrial Rate : 045 BPM P-R Int : 182 ms QRS Dur : 078 ms QT Int : 476 ms P-R-T Axes : 035 046 056 degrees QTc Int : 411 ms Sinus bradycardia Otherwise normal ECG When compared with ECG of 20-APR-2023 08:36, Vent. rate has decreased BY 26 BPM Referred By: Ondina Armstrong Electronically Signed By:LALY LOPEZ MD
[2023-04-25] MEDS: Piperacillin Sodium/Tazobactam 3.375 GM in 0.9 % Sodium Chloride 50 ML IV ×2 (03:41→08:16)
[2023-04-25 03:49] VITALS: RESP 18
[2023-04-25 08:00] VITALS: BP 140/66; PULSE 45; RESP 18; TEMP 36.8; O2SAT 95
[2023-04-25] MEDS: 0.9 % Sodium Chloride Flush 3 ML SYRINGE IVFLUSH ×3 (08:19→21:19)
[2023-04-25] MEDS: LORazepam 2 MG/ML VIAL 0.5 MG IVPUSH (09:28)
--- NOTE | 2023-04-25 10:25 | HO.PM.IMPN ---
Subjective Subjective Date of Service: 04/25/23 Interval History: follow up for colitis, agitation had a better night, no sitter unable to provide any significant history Physical Exam Vital Signs: Vital Signs: Last Vital Signs Temp 98.3 F 04/25/23 08:00 Pulse 45 L 04/25/23 08:00 Resp 18 04/25/23 08:00 BP 140/66 H 04/25/23 08:00 Pulse Ox 95 04/25/23 08:00 O2 Del Method Room Air 04/25/23 08:00 O2 Flow Rate 2 04/24/23 04:27 BMI result Body Mass Index 34.1 confused combative on and off lung sounds are clear to auscultation heart regular rate rhythm, clear S1, S2 positive bowel sounds, abdomen is soft, nontender neuro patient is alert x3, no focal deficits Objective Data Active Medications Acetaminophen (Acetaminophen 325 Mg Tablet) 650 mg PO Q6H PRN PRN Reason: Pain, Mild (Pain Scale 1-3) Albuterol Sulfate (Albuterol Sulfate 90 Mcg 8 Gm Inhaler) 2 puff INHALE Q4H PRN PRN Reason: Shortness Of Breath Or Wheezing Aspirin (Aspirin 81 Mg Tab.Chew) 81 mg PO DAILY [facility] Last Admin: 04/24/23 08:45 Dose: 81 mg Documented By: NATALIE Atorvastatin Calcium (Atorvastatin Calcium 40 Mg Tablet) 40 mg PO BEDTIME [facility] Last Admin: 04/24/23 19:47 Dose: 40 mg Documented By: INDER Docusate Sodium (Docusate Sodium 100 Mg Capsule) 100 mg PO DAILY [facility] Last Admin: 04/24/23 08:46 Dose: Not Given Documented By: NATALIE Non-Admin Reason: loose stool Donepezil HCl (Donepezil Hcl 10 Mg Tablet) 10 mg PO DAILY [facility] Last Admin: 04/23/23 10:46 Dose: 10 mg Documented By: NATALIE Enoxaparin Sodium (Enoxaparin Sodium 40 Mg/0.4 Ml Syringe) 40 mg SUBCUT Q24H [facility] Last Admin: 04/24/23 17:43 Dose: Not Given Documented By: NATALIE Non-Admin Reason: Patient Refused Piperacillin Sod/Tazobactam (Sod 3.375 gm/ Sodium Chloride) 50 mls @ 100 mls/hr IV Q6H [facility] Last Infusion: 04/25/23 08:47 Dose: Infused Documented By: ANNA Ipratropium [place] (Ipratropium [place] 0.06 % 15 Ml [place]) 1 spray NOSTRIL-B DAILY [facility] Last Admin: 04/24/23 08:46 Dose: Not Given Documented By: NATALIE Non-Admin Reason: Med Not Available Lisinopril (Lisinopril 10 Mg Tablet) 10 mg PO DAILY [facility]; Protocol Last Admin: 04/24/23 08:45 Dose: 10 mg Documented By: NATALIE Lorazepam (Lorazepam 2 Mg/Ml Vial) 0.5 mg IVPUSH Q6H PRN PRN Reason: Anxiety Last Admin: 04/25/23 09:28 Dose: 0.5 mg Documented By: ANNA Metoprolol Succinate (Metoprolol Succinate Er 25 Mg Tab.Er.24h) 25 mg PO DAILY [facility]; Protocol Last Admin: 04/24/23 08:45 Dose: 25 mg Documented By: NATALIE Multivitamins/Vitamin C (Multivitamin Tablet) 1 tab PO DAILY [facility] Last Admin: 04/24/23 08:45 Dose: 1 tab Documented By: NATALIE Ondansetron HCl (Ondansetron Hcl 4 Mg/2 Ml Vial) 4 mg IVPUSH Q8H PRN PRN Reason: Nausea and Vomiting Polyethylene Glycol (Polyethylene Glycol 3350 17 Gm Powd.Pack) 17 gm PO DAILY [facility] Last Admin: 04/24/23 08:46 Dose: Not Given Documented By: NATALIE Non-Admin Reason: loose stool Sertraline HCl (Sertraline Hcl 100 Mg Tablet) 100 mg PO DAILY [facility] Last Admin: 04/23/23 10:45 Dose: 100 mg Documented By: NATALIE Sodium Chloride (0.9 % Sodium Chloride Flush 3 Ml Syringe) 3 ml IVFLUSH QSHIFT [facility] Last Admin: 04/25/23 08:19 Dose: 3 ml Documented By: TIN Vitamin D (Cholecalciferol (Vitamin D3) 25 Mcg Tablet) 50 mcg PO BEDTIME [facility] Last Admin: 04/24/23 19:47 Dose: 50 mcg Documented By: LYSZ Labs 04/24/23 07:54 04/25/23 10:33 Labs: Laboratory Results - last 24 hr 04/23/23 18:10 Stl C. cayetanensis PCR Not Detected Stool Rotavirus A PCR Not Detected Stl Adenov F 40/41 PCR Not Detected Stool Astrovirus (PCR) Not Detected Stool Campylobacter PCR Not Detected Stool Cryptosporidium PCR Not Detected Stl Sh Tox Pr E STEC PCR Not Detected Stool E coli O157 PCR Not applicable Stl Enterotoxigenic E PCR Not Detected Stool EPEC (PCR) Not Detected Stool EAEC (PCR) Not Detected Stl E. histolytica PCR Not Detected Stool Giardia Lamblia PCR Not Detected Stl P. shigelloides PCR Not Detected Stool Salmonella PCR Not Detected Stool Sapovirus (PCR) Not Detected Stl Shigella/EIEC PCR Not Detected St Y.enterocolitica PCR Not Detected Stool Vibrio (PCR) Not Detected Stl Vibrio cholerae PCR Not Detected Stl Norovirus GI/GII PCR Not Detected Assessment and Plan (1) Primary degenerative dementia: Status: Acute (2) Toxic metabolic encephalopathy: Status: Acute (3) Colitis: Status: Acute Plan 77-year-old male with history of coronary artery disease, dementia who presents to the emergency department with weakness and N/V/D found to have colitis Acute metabolic encephalopathy due to acute illness above on a background of dementia, unspecified frequent re-orientation CT scan of brain with significant degenerative changes on CT. Ventriculomegaly, does not want to do MRI unless absolutely necessary, holding off for now PT consult rec> STR, spouse wants to take him home patient still very confused and combative, re-consult neuro psych consult> rec limit dose of benzodiazepine (ativan no more than 2mg/day). May consider low doses of seroquel 25-50mg to assist with combative behaviors. On admission patient had an episode of myoclonus after seroquel, psych provider does not think it was related to seroquel but rather corticol atrophy vs namenda OOB to chair Bradycardia 30-40's hr on playground monitor hold BB cardiology consult pending Acute colitis vs gastroenteritis CT with severe distention of colon with gas and liquid stool stool studies and cdiff negative s/p IV zosyn 5 days advance diet Dementia unspecified, likely Alzheimer's hold namenda, aricept as per psychiatric provider CAD no chest pain continue asa, BB, statin HTN continue lisinopril, metroprolol Mood continue sertraline DVT ppx - lovenox Attending Dr. Sanchez DNR continue hospital stay for treatment with IV antitibiotics, safe disposition, still combative Quality Stroke Does the patient have a stroke diagnosis?: No VTE Prior VTE?: No VTE Risk Level:: Medical - moderate - high VTE Device Contraindication: Treatment Not Indicated VTE Drug Contraindication: N/A - Med Ordered
[2023-04-25 11:18] LABS: Anion Gap 10 (12-20); Blood Urea Nitrogen 17 mg/dL (9-16); Calcium 8.3 mg/dL (8.4-10.2); Carbon Dioxide 24 mmol/L (22-29); Chloride 113 mmol/L (96-108); Creatinine Clr Calc Pharmacy 85.8; Estimated Glomerular Filt Rate > 60; Glucose Random 95 mg/dL (60-115); Potassium 3.4 mmol/L (3.3-5.1); Sodium 144 mmol/L (135-145)
--- NOTE | 2023-04-25 12:47 | PM.PSYCN ---
History of Present Illness Date of Service: 04/25/2023 Chief Complaint: Colitis Reason for Consult: combative behaviors Requesting physician: Ondina Armstrong Discussed with referring provider: Yes Sources of Information: patient interviewed, chart reviewed and crisis/core team assessment reviewed HPI Narrative: Mr. Mane is a 77 year-old male w/ hx of dementia who was brought to ED due to increase weakness, non bloody vomiting. He was admitted for evaluation of possible colitis. Since admission, his has been historian as pt described as not able to provide much meaningful information. He has had episodes of intermittent agitation. He has been given combination of diazepam and ativan. This senior mortgage underwriter attempted to see pt but was sedated and somnolent. [facility] Medical History (Updated 04/25/23 @ 12:53 by Sil Valera) Dementia CAD (coronary artery disease) Diagnostics Vital Signs (24Hr): Vital Signs - 24 hr 04/24/23 15:24 04/24/23 19:11 04/25/23 03:49 Temperature 97.2 F 98.2 F Pulse Rate 63 61 Respiratory Rate 18 17 18 Blood Pressure 154/68 H 158/64 H Pulse Oximetry 95 94 Oxygen Delivery Method Room Air Room Air 04/25/23 08:00 Temperature 98.3 F Pulse Rate 45 L Respiratory Rate 18 Blood Pressure 140/66 H Pulse Oximetry 95 Oxygen Delivery Method Room Air BMI result Body Mass Index 34.1 Labs 04/24/23 07:54 04/25/23 10:33 Labs: Laboratory Results - last 48 hr 04/23/23 04/23/23 04/24/23 14:56 18:10 07:54 WBC 9.1 RBC 4.10 L Hgb 12.2 L Hct 35.0 L MCV 85.4 MCH 29.8 MCHC 34.9 RDW 13.2 Plt Count 196 MPV 9.3 L Absolute Nucleated RBC 0.000 Nucleated RBC % (auto) 0.0 VBG pH 7.47 H VBG pCO2 36 VBG pO2 58 VBG HCO3 26 VBG O2 Saturation 89.0 VBG Base Excess 3.5 Sodium 142 Potassium 3.2 L Chloride 110 H Carbon Dioxide 24 Anion Gap 11 L BUN 18 H Creatinine 0.85 Estim Creat Clear Calc 86.8 Estimated GFR > 60 Random Glucose 101 Calcium 8.2 L Ammonia Stl C. cayetanensis PCR Not Detected Stool Rotavirus A PCR Not Detected Stl Adenov F 40/41 PCR Not Detected Stool Astrovirus (PCR) Not Detected Stool Campylobacter PCR Not Detected Stool Cryptosporidium PCR Not Detected Stl Sh Tox Pr E STEC PCR Not Detected Stool E coli O157 PCR Not applicable Stl Enterotoxigenic E PCR Not Detected Stool EPEC (PCR) Not Detected Stool EAEC (PCR) Not Detected Stl E. histolytica PCR Not Detected Stool Giardia Lamblia PCR Not Detected Stl P. shigelloides PCR Not Detected Stool Salmonella PCR Not Detected Stool Sapovirus (PCR) Not Detected Stl Shigella/EIEC PCR Not Detected St Y.enterocolitica PCR Not Detected Stool Vibrio (PCR) Not Detected Stl Vibrio cholerae PCR Not Detected Stl Norovirus GI/GII PCR Not Detected C. difficile Tox B Gene NEGATIVE 04/24/23 04/25/23 08:25 10:33 WBC RBC Hgb Hct MCV MCH MCHC RDW Plt Count MPV Absolute Nucleated RBC Nucleated RBC % (auto) VBG pH VBG pCO2 VBG pO2 VBG HCO3 VBG O2 Saturation VBG Base Excess Sodium 144 Potassium 3.4 Chloride 113 H Carbon Dioxide 24 Anion Gap 10 L BUN 17 H Creatinine 0.86 Estim Creat Clear Calc 85.8 Estimated GFR > 60 Random Glucose 95 Calcium 8.3 L Ammonia 30 Stl C. cayetanensis PCR Stool Rotavirus A PCR Stl Adenov F 40/41 PCR Stool Astrovirus (PCR) Stool Campylobacter PCR Stool Cryptosporidium PCR Stl Sh Tox Pr E STEC PCR Stool E coli O157 PCR Stl Enterotoxigenic E PCR Stool EPEC (PCR) Stool EAEC (PCR) Stl E. histolytica PCR Stool Giardia Lamblia PCR Stl P. shigelloides PCR Stool Salmonella PCR Stool Sapovirus (PCR) Stl Shigella/EIEC PCR St Y.enterocolitica PCR Stool Vibrio (PCR) Stl Vibrio cholerae PCR Stl Norovirus GI/GII PCR C. difficile Tox B Gene Imaging Radiology Impressions: ITS Impressions Chest X-Ray 04/20/23 08:26 IMPRESSION: No acute cardiopulmonary process. Head CT 04/20/23 08:59 IMPRESSION: Borderline ventriculomegaly. Advise clinical correlation for normal pressure hydrocephalus. Abdomen/Pelvis CT 04/20/23 11:57 IMPRESSION: 1. Severe distention of colon by gas and liquid stool most likely due to colitis. 2. Hepatic steatosis. 3. Fatty atrophy of pancreatic head and body. 4. Degenerative changes in lumbar spine and hip joints. Fleischner guidelines were followed. Mental Status Exam Mental Status Exam Narrative: unable to assess due to sedation. Medications Medications Current Medications Acetaminophen (Acetaminophen 325 Mg Tablet) 650 mg PO Q6H PRN PRN Reason: Pain, Mild (Pain Scale 1-3) Albuterol Sulfate (Albuterol Sulfate 90 Mcg 8 Gm Inhaler) 2 puff INHALE Q4H PRN PRN Reason: Shortness Of Breath Or Wheezing Aspirin (Aspirin 81 Mg Tab.Chew) 81 mg PO DAILY [facility] Last Admin: 04/25/23 10:00 Dose: Not Given Atorvastatin Calcium (Atorvastatin Calcium 40 Mg Tablet) 40 mg PO BEDTIME [facility] Last Admin: 04/24/23 19:47 Dose: 40 mg Docusate Sodium (Docusate Sodium 100 Mg Capsule) 100 mg PO DAILY [facility] Last Admin: 04/25/23 10:00 Dose: Not Given Donepezil HCl (Donepezil Hcl 10 Mg Tablet) 10 mg PO DAILY [facility] Last Admin: 04/23/23 10:46 Dose: 10 mg Enoxaparin Sodium (Enoxaparin Sodium 40 Mg/0.4 Ml Syringe) 40 mg SUBCUT Q24H [facility] Last Admin: 04/24/23 17:43 Dose: Not Given Ipratropium [place] (Ipratropium [place] 0.06 % 15 Ml [place]) 1 spray NOSTRIL-B DAILY [facility] Last Admin: 04/25/23 10:00 Dose: Not Given Lisinopril (Lisinopril 10 Mg Tablet) 10 mg PO DAILY [facility]; Protocol Last Admin: 04/25/23 10:00 Dose: Not Given Lorazepam (Lorazepam 2 Mg/Ml Vial) 0.5 mg IVPUSH Q6H PRN PRN Reason: Anxiety Last Admin: 04/25/23 09:28 Dose: 0.5 mg Metoprolol Succinate (Metoprolol Succinate Er 25 Mg Tab.Er.24h) 25 mg PO DAILY [facility]; Protocol Last Admin: 04/25/23 10:00 Dose: Not Given Multivitamins/Vitamin C (Multivitamin Tablet) 1 tab PO DAILY [facility] Last Admin: 04/25/23 10:00 Dose: Not Given Ondansetron HCl (Ondansetron Hcl 4 Mg/2 Ml Vial) 4 mg IVPUSH Q8H PRN PRN Reason: Nausea and Vomiting Polyethylene Glycol (Polyethylene Glycol 3350 17 Gm Powd.Pack) 17 gm PO DAILY [facility] Last Admin: 04/25/23 10:00 Dose: Not Given Sertraline HCl (Sertraline Hcl 100 Mg Tablet) 100 mg PO DAILY [facility] Last Admin: 04/23/23 10:45 Dose: 100 mg Sodium Chloride (0.9 % Sodium Chloride Flush 3 Ml Syringe) 3 ml IVFLUSH QSHIFT [facility] Last Admin: 04/25/23 08:19 Dose: 3 ml Vitamin D (Cholecalciferol (Vitamin D3) 25 Mcg Tablet) 50 mcg PO BEDTIME [facility] Last Admin: 04/24/23 19:47 Dose: 50 mcg Allergies Allergies Allergy/AdvReac Type Severity Reaction Status Date / Time No Known Allergies Allergy Verified 04/20/23 08:16 Assessment & Plan Assessment & Plan (1) Major neurocognitive disorder: Status: Acute Code(s): F03.90 - Unspecified dementia, unspecified severity, without behavioral disturbance, psychotic disturbance, mood disturbance, and anxiety Plan Mr. Mane is a 77 year-old male with hx of dementia. Pt admitted for suspicion of colitis, although seen yesterday by GI who does not think is collitis (no wall thickening of the colon or pericolonic inflammatory change) and unless cultures come back positive, recommended stopping antibiotics. Pt has had episodes of combative behaviors. He was also assessed by neurology which described myoclonic movement. Head CT with moderate to severe cortical and central atrophy. He has had periods of increased combative behaviors and given combination of ativan and diazepam. Namenda and Aricept have been stopped. This senior mortgage underwriter was unable to assess current mental status due to sedation. I would recommend to limit dose of benzodiazepine (ativan no more than 2mg/day). May consider low doses of seroquel 25-50mg to assist with combative behaviors. Total time managing care of this patient today ____ minutes.
[2023-04-25] MEDS: lisinopriL 10 MG TABLET PO (14:12)
[2023-04-25] MEDS: Docusate Sodium 100 MG CAPSULE PO (14:12)
[2023-04-25] MEDS: Aspirin 81 MG TAB.CHEW PO (14:12)
[2023-04-25] MEDS: Multivitamin TABLET 1 TAB PO (14:16)
[2023-04-25] MEDS: polyethylene glycoL 3350 17 GM POWD.PACK PO (14:19)
--- NOTE | 2023-04-25 15:00 | PC.NURSE ---
Assumed care of patient at this time.
[2023-04-25 15:09] VITALS: BP 135/67; PULSE 73; RESP 18; TEMP 36; O2SAT 92
--- NOTE | 2023-04-25 16:07 | PC.NURSE ---
Patient's refuses for seroquel to be given at this time. She states patient had myclonic/ seizure like activity after receiving one dose in the ER upon arrival. Is interested in exploring Depakote instead for his agitation. Ondina Armstrong, PACKAGE LINE OPERATOR aware at this time.
[2023-04-25] MEDS: Enoxaparin Sodium 40 MG/0.4 ML SYRINGE SUBCUT (16:09)
--- NOTE | 2023-04-25 16:42 | P.PNNE_ITS ---
Subjective Subjective Date of Service: 04/25/23 Interval History: Asked to review CT findings . He is still confused and agitated at times. Unable to provide any significant history Critical Care Time (minutes): 0 Physical Exam 2 Vital Signs: Vital Signs: Last Vital Signs Temp 96.8 F 04/25/23 15:09 Pulse 73 04/25/23 15:09 Resp 18 04/25/23 15:09 BP 135/67 04/25/23 15:09 Pulse Ox 92 04/25/23 15:09 O2 Del Method Room Air 04/25/23 15:09 O2 Flow Rate 2 04/24/23 04:27 BMI result Body Mass Index 34.1 Const: Other: sleepy, arousable to verbal stimuli, startles easily; falls back to sleep quickly General: cooperative, alert, awake and confusion Nutritional Appearance: well nourished and overweight Orientation/consciousness: confusion L imitations: no limitations HEENT: Head: Yes normal to inspection and Yes atraumatic Ears: hearing grossly normal bilaterally and external ears normal General nose exam: Normal external nose present, no nasal discharge noted and no epistaxis Face and sinus: Yes normal facial exam, No abrasion and No laceration Mouth: Normal oral and palatal mucosa present, no drooling and no muffled voice Eyes: General: appearance normal, both eyes and all related structures P eriorbital: periorbital findings normal Eyelids: Yes eyelids normal C onjunctivae: conjunctivae normal Pupils: Equal, round and reactive pupils present EOM: EOMs intact bilaterally Neck: Neck: Yes normal visual inspection, Yes full ROM and Yes no lymphadenopathy Chest: Chest palpation & inspection: normal inspection of the chest Resp: Effort & Inspection: normal respiratory effort, able to speak in complete sentences, no respiratory distress and no use of accessory muscles A uscultation: clear to auscultation bilaterally Cardio: Rate: regular rate and bradycardic GI: Other: +BS Inspection: Yes normal to inspection and No distended Palpation (GI): S oft to palpation Skin: Other: warm/dry Neuro: Other: Arousable, poorly cooperative. Confused and agitated. He did not follow commands. General: confusion Cranial nerves: Yes Equal, round and reactive pupils present Cognition (Neuro): abnormal cognition Motor exam (neuro): 5/5 motor strength present throughout Extrem: General: Yes normal to inspection, Yes full ROM, Yes capillary refill normal and Yes no pedal edema Psych: Appearance: grossly normal Mental Status: mental status grossly normal Affect: normal affect Attitude: cooperative Thought process: N ormal thought process present Thought content: Normal thought content present Insight: Good insight present (Psych) Objective Data Labs 04/24/23 07:54 04/25/23 10:33 Labs: Laboratory Results - last 24 hr 04/25/23 10:33 Sodium 144 Potassium 3.4 Chloride 113 H Carbon Dioxide 24 Anion Gap 10 L BUN 17 H Creatinine 0.86 Estim Creat Clear Calc 85.8 Estimated GFR > 60 Random Glucose 95 Calcium 8.3 L Microbiology Microbiology Results: Microbiology 04/20/23 09:07 Blood - Venous Blood Culture - Final No growth after 5 days. 04/20/23 09:07 Blood - Venous Blood Culture - Final No growth after 5 days. Progress Note: A&P Assessment and plan (1) Primary degenerative dementia: Status: Acute Assessment and Plan: CT shows diffuse cortical and central ventriculomegaly consistent with degen dementia. Hydrocephalus is not a consideration here. Recom. Check B12, folate, thyroid profile, EEG. Sedate with Risperidal 1mg bid. Treat infectious and metabolic comorbidities. (2) Toxic metabolic encephalopathy: Status: Acute (3) Colitis: Status: Acute Plan 77-year-old male with history of coronary artery disease, dementia who presents to the emergency department with weakness and N/V/D found to have colitis Acute metabolic encephalopathy due to acute illness above on a background of dementia, unspecified frequent re-orientation CT scan of brain with significant degenerative changes on CT. Ventriculomegaly, does not want to do MRI unless absolutely necessary, holding off for now PT consult rec> STR, spouse wants to take him home patient still very confused and combative, re-consult neuro psych consult> rec limit dose of benzodiazepine (ativan no more than 2mg/day). May consider low doses of seroquel 25-50mg to assist with combative behaviors. On admission patient had an episode of myoclonus after seroquel, psych provider does not think it was related to seroquel but rather corticol atrophy vs namenda OOB to chair Bradycardia 30-40's hr on animal damage control agent hold BB cardiology consult pending Acute colitis vs gastroenteritis CT with severe distention of colon with gas and liquid stool stool studies and cdiff negative s/p IV zosyn 5 days advance diet Dementia unspecified, likely Alzheimer's hold namenda, aricept as per psychiatric provider CAD no chest pain continue asa, BB, statin HTN continue lisinopril, metroprolol Mood continue sertraline DVT ppx - lovenox Attending Dr. Sanchez DNR continue hospital stay for treatment with IV antitibiotics, safe disposition, still combative Time Spent With Patient Time: Total time managing care of this patient today ____ minutes. Procedures Date of Service Date of Service: 04/25/23 Quality Stroke Does the patient have a stroke diagnosis?: No VTE Prior VTE?: No VTE Risk Level:: Medical - moderate - high VTE Device Contraindication: Treatment Not Indicated VTE Drug Contraindication: N/A - Med Ordered
[2023-04-25 18:55] VITALS: BP 152/68; PULSE 57; RESP 18; TEMP 36.2; O2SAT 94
[2023-04-25] MEDS: traZODone HCL 25 MG HALFTAB 75 MG PO (21:09)
[2023-04-25] MEDS: Cholecalciferol (Vitamin D3) 25 MCG TABLET 50 MCG PO (21:10)
[2023-04-25] MEDS: Magnesium Oxide 400 MG TABLET PO (21:10)
[2023-04-25] MEDS: Atorvastatin Calcium 40 MG TABLET PO (21:10)
[2023-04-25] MEDS: clonazePAM 1 MG TABLET PO (21:10)
[2023-04-26] MEDS: Valproic Acid (as Sodium Salt) 500 MG in Dextrose 5 % 50 ML 55 MG IV (00:54)
[2023-04-26 04:00] VITALS: BP 180/64; PULSE 50; RESP 18; TEMP 36.4; O2SAT 95
[2023-04-26 06:52] VITALS: BP 172/77; PULSE 54; RESP 18; TEMP 36.6; O2SAT 96
[2023-04-26 07:02] VITALS: BP 162/70
[2023-04-26] MEDS: 0.9 % Sodium Chloride Flush 3 ML SYRINGE IVFLUSH ×3 (07:03→20:08)
[2023-04-26] MEDS: polyethylene glycoL 3350 17 GM POWD.PACK PO (07:05)
[2023-04-26] MEDS: Docusate Sodium 100 MG CAPSULE PO (07:05)
[2023-04-26] MEDS: lisinopriL 10 MG TABLET PO (07:20)
[2023-04-26] MEDS: Multivitamin TABLET 1 TAB PO (07:21)
[2023-04-26] MEDS: Aspirin 81 MG TAB.CHEW PO (07:21)
[2023-04-26 08:01] LABS: Hematocrit 35.6 % (42.0-52.0); Hemoglobin 12.1 g/dl (14.0-18.0); Mean Corpuscular Hemoglobin 29.3 pg (27.0-33.0); Mean Corpuscular Volume 86.2 fL (80.0-98.0); Platelet Count 181 X10*3/uL (160-400); Red Blood Count 4.13 X10*6/uL (4.60-5.80); Red Cell Distribution Width 13.3 % (11.0-16.0); White Blood Count 6.4 X10*3/uL (4.8-10.8)
--- NOTE | 2023-04-26 10:10 | PM.CNCAR ---
History of Present Illness History of Present Illness Date of Service: 04/26/23 Requesting physician: Ondina Armstrong Chief complaint: Sinus bradycardia Narrative: I was consulted to see Alban in cardiology consultation today for noticing sinus bradycardia without any hemodynamic compromise. Patient is unable to provide any history. Patient is currently on cardiac telemetry. There are no reported symptoms or syncope noted. Blood pressure is in fact on the higher side. Patient admitted with colitis and has underlying history of CAD as well as dementia. His metoprolol was put on hold yesterday. When I evaluated him at bedside his heart rate was at 64 beats per minute in sinus rhythm Review of Systems Review of Systems: Yes Unobtainable due to mental status Neurologic: Reports confusion Psychiatric: Psychiatric: Reports confusion [facility] Past Medical History Medical History (Updated 04/26/23 @ 10:14 by Chau Gusman MD) Dementia CAD (coronary artery disease) Family History Family History (Updated 04/20/23 @ 14:40 by SHAYY Cat) Mother CAD (coronary artery disease) Diabetes Social History Social History (Updated 04/20/23 @ 14:40 by SHAYY Cat) Household Members: Spouse Housing: House Alcohol intake: never Patient Tobacco Use Status: Former Tobacco user Smoked in Last 30 Days: No Use of substances other than those prescribed or required for medical reasons: Unable to respond Currently Displaying Signs/Symptoms of Drug Intoxication Withdrawal: No Advance Directives: Yes Advance Directives Information Provided: No Advance Directives on File: No Advance Directives Date on File: 04/20/23 Recently lost weight without trying: Unsure Nutrition Risks: No Nutritional Risk service: No Meds Allergies Allergy/AdvReac Type Severity Reaction Status Date / Time No Known Allergies Allergy Verified 04/20/23 08:16 Active Medications: Current Medications Acetaminophen (Acetaminophen 325 Mg Tablet) 650 mg PO Q6H PRN PRN Reason: Pain, Mild (Pain Scale 1-3) Albuterol Sulfate (Albuterol Sulfate 90 Mcg 8 Gm Inhaler) 2 puff INHALE Q4H PRN PRN Reason: Shortness Of Breath Or Wheezing Aspirin (Aspirin 81 Mg Tab.Chew) 81 mg PO DAILY [facility] Last Admin: 04/26/23 07:21 Dose: 81 mg Atorvastatin Calcium (Atorvastatin Calcium 40 Mg Tablet) 40 mg PO BEDTIME [facility] Last Admin: 04/25/23 21:10 Dose: 40 mg Clonazepam (Clonazepam 1 Mg Tablet) 1 mg PO BEDTIME [facility] Last Admin: 04/25/23 21:10 Dose: 1 mg Docusate Sodium (Docusate Sodium 100 Mg Capsule) 100 mg PO DAILY [facility] Last Admin: 04/26/23 07:05 Dose: 100 mg Donepezil HCl (Donepezil Hcl 10 Mg Tablet) 10 mg PO DAILY [facility] Last Admin: 04/23/23 10:46 Dose: 10 mg Enoxaparin Sodium (Enoxaparin Sodium 40 Mg/0.4 Ml Syringe) 40 mg SUBCUT Q24H [facility] Last Admin: 04/25/23 16:09 Dose: 40 mg Ipratropium [place] (Ipratropium [place] Brandon 0.06 % 15 Ml [place]) 1 spray NOSTRIL-B DAILY [facility] Last Admin: 04/26/23 07:21 Dose: Not Given Lisinopril (Lisinopril 10 Mg Tablet) 10 mg PO DAILY [facility]; Protocol Last Admin: 04/26/23 07:20 Dose: 10 mg Magnesium Oxide (Magnesium Oxide 400 Mg Tablet) 400 mg PO BEDTIME [facility] Last Admin: 04/25/23 21:10 Dose: 400 mg Metoprolol Succinate (Metoprolol Succinate Er 25 Mg Tab.Er.24h) 25 mg PO DAILY [facility]; Protocol Last Admin: 04/25/23 10:00 Dose: Not Given Multivitamins/Vitamin C (Multivitamin Tablet) 1 tab PO DAILY [facility] Last Admin: 04/26/23 07:21 Dose: 1 tab Ondansetron HCl (Ondansetron Hcl 4 Mg/2 Ml Vial) 4 mg IVPUSH Q8H PRN PRN Reason: Nausea and Vomiting Polyethylene Glycol (Polyethylene Glycol 3350 17 Gm Powd.Pack) 17 gm PO DAILY [facility] Last Admin: 04/26/23 07:05 Dose: 17 gm Sertraline HCl (Sertraline Hcl 100 Mg Tablet) 100 mg PO DAILY [facility] Last Admin: 04/23/23 10:45 Dose: 100 mg Sodium Chloride (0.9 % Sodium Chloride Flush 3 Ml Syringe) 3 ml IVFLUSH QSHIFT [facility] Last Admin: 04/26/23 07:03 Dose: 3 ml Trazodone HCl (Trazodone Hcl 25 Mg Halftab) 75 mg PO BEDTIME [facility] Last Admin: 04/25/23 21:09 Dose: 75 mg Vitamin D (Cholecalciferol (Vitamin D3) 25 Mcg Tablet) 50 mcg PO BEDTIME [facility] Last Admin: 04/25/23 21:10 Dose: 50 mcg Home Medications Medication Instructions Recorded Confirmed Last Taken Type albuterol sulfate 90 mcg/actuation 2 puff inhalation Q4H PRN 04/20/23 04/20/23 Unknown History aerosol inhaler Shortness Of Breath Or Wheezing aspirin 81 mg chewable tablet 81 mg PO DAILY 04/20/23 04/20/23 2 Days Ago History ~04/18/23 atorvastatin 40 mg tablet 40 mg PO BEDTIME 04/20/23 04/20/23 2 Days Ago History ~04/18/23 bisacodyl 5 mg tablet,delayed 10 mg PO DAILY PRN Constipation 04/20/23 04/20/23 Unknown History release cholecalciferol (vitamin D3) 50 50 mcg PO BEDTIME 04/20/23 04/20/23 2 Days Ago History mcg (2,000 unit) tablet ~04/18/23 docusate sodium 100 mg capsule 100 mg PO DAILY 04/20/23 04/20/23 2 Days Ago History (Colace) ~04/18/23 donepezil 10 mg tablet 10 mg PO DAILY 04/20/23 04/20/23 2 Days Ago History ~04/18/23 ipratropium bromide 42 mcg (0.06 1 spray intranasal DAILY 04/20/23 04/20/23 2 Days Ago History %) nasal spray ~04/18/23 lisinopril 10 mg tablet 10 mg PO DAILY 04/20/23 04/20/23 2 Days Ago History ~04/18/23 memantine 10 mg tablet 10 mg PO BID 04/20/23 04/20/23 2 Days Ago History ~04/18/23 metoprolol succinate 25 mg 25 mg PO DAILY 04/20/23 04/20/23 2 Days Ago History tablet,extended release 24 hr ~04/18/23 multivitamin 1 tab PO DAILY 04/20/23 04/20/23 2 Days Ago History ~04/18/23 naproxen sodium 220 mg tablet 220 mg PO Q8H PRN Pain 04/20/23 04/20/23 Unknown History (Aleve) sertraline 100 mg tablet 100 mg PO DAILY 04/20/23 04/20/23 2 Days Ago History ~04/18/23 Physical Exam Vital Signs: Vital Signs: Last Vital Signs Temp 97.8 F 04/26/23 06:52 Pulse 54 04/26/23 06:52 Resp 18 04/26/23 06:52 BP 162/70 H 04/26/23 07:02 Pulse Ox 96 04/26/23 06:52 O2 Del Method Room Air 04/26/23 06:52 O2 Flow Rate 2 04/24/23 04:27 BMI result Body Mass Index 34.1 Const: General: alert, awake, confusion and other (Agitated) Nutritional Appearance: obese Orientation/consciousness: confusion HEENT: Head: Yes normocephalic and Yes atraumatic Neck: Neck: Yes trachea midline and Yes supple Resp: Effort & Inspection: decreased respiratory effort Auscultation: diminished lung sounds Cardio: Jugular venous distension: no JVD Rate: regular rate Rhythm: regular rhythm Heart sounds: S1 normal heart sound present, S2 normal heart sound present, no click, no gallops, no murmurs and no rubs GI: Auscultation: normal bowel sounds Skin: General skin exam: no rashes or lesions noted Neuro: General: moves all extremities and confusion Extrem: General: Yes no clubbing, cyanosis or edema Objective Labs and Meds 04/26/23 07:00 04/25/23 10:33 Lab results: Laboratory Results - last 24 hr 04/25/23 04/26/23 10:33 07:00 WBC 6.4 RBC 4.13 L Hgb 12.1 L Hct 35.6 L MCV 86.2 MCH 29.3 MCHC 34.0 RDW 13.3 Plt Count 181 MPV 10.0 Absolute Nucleated RBC 0.000 Nucleated RBC % (auto) 0.0 Hold Purple Top SEE NOTE Sodium 144 Potassium 3.4 Chloride 113 H Carbon Dioxide 24 Anion Gap 10 L BUN 17 H Creatinine 0.86 Estim Creat Clear Calc 85.8 Estimated GFR > 60 Random Glucose 95 Calcium 8.3 L Assessment and Plan (1) Sinus bradycardia: Status: Acute Asymptomatic sinus bradycardia without hemodynamic compromise in this elderly gentleman with significantly advanced dementia on metoprolol therapy. Metoprolol therapy is appropriately held, I would discontinue it permanently. Avoid rate lowering medications. Blood pressure can be controlled by either increasing lisinopril and/or adding Norvasc to his regimen. Continue supportive care. There is no indication for pacemaker therapy. Will sign of the case. Thank you for allowing me to partake in his care Procedures Date of Service Date of Service: 04/26/23
--- NOTE | 2023-04-26 12:53 | P.CNPS_ITS ---
History of Present Illness Date of Service: 04/27/23 Chief Complaint: Sinus bradycardia Discussed with referring provider: Yes Sources of Information: patient interviewed, chart reviewed and crisis/core team assessment reviewed HPI Narrative: Interim Hx: pt apparently slept most of the night. Did wake up at 1am and received depakote 500mg. He woke up at around 1pm next day. Slowly presenting as less delirious. Awating PT and would like to take him home soon as possible. He was very somnolent last night. [facility] Medical History (Updated 04/26/23 @ 10:14 by Chau Gusman MD) Dementia CAD (coronary artery disease) Diagnostics Vital Signs (24Hr): Vital Signs - 24 hr 04/25/23 15:09 04/25/23 18:55 04/26/23 04:00 Temperature 96.8 F 97.1 F 97.6 F Pulse Rate 73 57 50 Respiratory Rate 18 18 18 Blood Pressure 135/67 152/68 H 180/64 H Pulse Oximetry 92 94 95 Oxygen Delivery Method Room Air Room Air Room Air 04/26/23 06:52 04/26/23 07:02 Temperature 97.8 F Pulse Rate 54 Respiratory Rate 18 Blood Pressure 172/77 H 162/70 H Pulse Oximetry 96 Oxygen Delivery Method Room Air BMI result Body Mass Index 34.1 Labs 04/26/23 07:00 04/25/23 10:33 Labs: Laboratory Results - last 48 hr 04/25/23 04/26/23 10:33 07:00 WBC 6.4 RBC 4.13 L Hgb 12.1 L Hct 35.6 L MCV 86.2 MCH 29.3 MCHC 34.0 RDW 13.3 Plt Count 181 MPV 10.0 Absolute Nucleated RBC 0.000 Nucleated RBC % (auto) 0.0 Hold Purple Top SEE NOTE Sodium 144 Potassium 3.4 Chloride 113 H Carbon Dioxide 24 Anion Gap 10 L BUN 17 H Creatinine 0.86 Estim Creat Clear Calc 85.8 Estimated GFR > 60 Random Glucose 95 Calcium 8.3 L Imaging Radiology Impressions: ITS Impressions Chest X-Ray 04/20/23 08:26 IMPRESSION: No acute cardiopulmonary process. Head CT 04/20/23 08:59 IMPRESSION: Borderline ventriculomegaly. Advise clinical correlation for normal pressure hydrocephalus. Abdomen/Pelvis CT 04/20/23 11:57 IMPRESSION: 1. Severe distention of colon by gas and liquid stool most likely due to colitis. 2. Hepatic steatosis. 3. Fatty atrophy of pancreatic head and body. 4. Degenerative changes in lumbar spine and hip joints. Fleischner guidelines were followed. Medications Medications Current Medications Acetaminophen (Acetaminophen 325 Mg Tablet) 650 mg PO Q6H PRN PRN Reason: Pain, Mild (Pain Scale 1-3) Albuterol Sulfate (Albuterol Sulfate 90 Mcg 8 Gm Inhaler) 2 puff INHALE Q4H PRN PRN Reason: Shortness Of Breath Or Wheezing Aspirin (Aspirin 81 Mg Tab.Chew) 81 mg PO DAILY [facility] Last Admin: 04/26/23 07:21 Dose: 81 mg Atorvastatin Calcium (Atorvastatin Calcium 40 Mg Tablet) 40 mg PO BEDTIME [facility] Last Admin: 04/25/23 21:10 Dose: 40 mg Clonazepam (Clonazepam 0.5 Mg Tablet) 0.5 mg PO BEDTIME [facility] Docusate Sodium (Docusate Sodium 100 Mg Capsule) 100 mg PO DAILY [facility] Last Admin: 04/26/23 07:05 Dose: 100 mg Donepezil HCl (Donepezil Hcl 10 Mg Tablet) 10 mg PO DAILY [facility] Last Admin: 04/23/23 10:46 Dose: 10 mg Enoxaparin Sodium (Enoxaparin Sodium 40 Mg/0.4 Ml Syringe) 40 mg SUBCUT Q24H [facility] Last Admin: 04/25/23 16:09 Dose: 40 mg Ipratropium [place] (Ipratropium [place] 0.06 % 15 Ml [place]) 1 spray NOSTRIL-B DAILY [facility] Last Admin: 04/26/23 07:21 Dose: Not Given Lisinopril (Lisinopril 10 Mg Tablet) 10 mg PO DAILY [facility]; Protocol Last Admin: 04/26/23 07:20 Dose: 10 mg Magnesium Oxide (Magnesium Oxide 400 Mg Tablet) 400 mg PO BEDTIME [facility] Last Admin: 04/25/23 21:10 Dose: 400 mg Metoprolol Succinate (Metoprolol Succinate Er 25 Mg Tab.Er.24h) 25 mg PO DAILY [facility]; Protocol Last Admin: 04/25/23 10:00 Dose: Not Given Multivitamins/Vitamin C (Multivitamin Tablet) 1 tab PO DAILY [facility] Last Admin: 04/26/23 07:21 Dose: 1 tab Ondansetron HCl (Ondansetron Hcl 4 Mg/2 Ml Vial) 4 mg IVPUSH Q8H PRN PRN Reason: Nausea and Vomiting Polyethylene Glycol (Polyethylene Glycol 3350 17 Gm Powd.Pack) 17 gm PO DAILY [facility] Last Admin: 04/26/23 07:05 Dose: 17 gm Sertraline HCl (Sertraline Hcl 100 Mg Tablet) 100 mg PO DAILY [facility] Last Admin: 04/23/23 10:45 Dose: 100 mg Sodium Chloride (0.9 % Sodium Chloride Flush 3 Ml Syringe) 3 ml IVFLUSH QSHIFT [facility] Last Admin: 04/26/23 07:03 Dose: 3 ml Trazodone HCl (Trazodone Hcl 50 Mg Tablet) 50 mg PO BEDTIME [facility] Vitamin D (Cholecalciferol (Vitamin D3) 25 Mcg Tablet) 50 mcg PO BEDTIME [facility] Last Admin: 04/25/23 21:10 Dose: 50 mcg Allergies Allergies Allergy/AdvReac Type Severity Reaction Status Date / Time No Known Allergies Allergy Verified 04/20/23 08:16 Assessment & Plan Assessment & Plan (1) Major neurocognitive disorder: Status: Acute Code(s): F03.90 - Unspecified dementia, unspecified severity, without behavioral disturbance, psychotic disturbance, mood disturbance, and anxiety Plan decrease clonazepam from 1mg po qhs to 0.5mg po qhs and decrease trazodone from 75mg to 50mg po qhs. Total time managing care of this patient today ____ minutes.
--- NOTE | 2023-04-26 13:10 | MHC.CM.PN ---
EMR reviewed. Per MD rounds patient is not medically cleared for dc. CM met with at bedside. maintains that she is not interested in STR, prefers to bring patient home. WILLIE is following. is working on setting up private services for hours that she works (2x/wk in the morning only). She will reach out to [employer] and has a family friend that may help. She will also coordinate with her children (one lives in [place] and the other in [place]). [facility] referral placed to explore options for services. CM will continue to follow.
--- NOTE | 2023-04-26 13:25 | HO.PM.IMPN ---
Subjective Subjective Date of Service: 04/26/23 Interval History: No acute issues overnight. Physical Exam Vital Signs: Vital Signs: Last Vital Signs Temp 97.8 F 04/26/23 06:52 Pulse 54 04/26/23 06:52 Resp 18 04/26/23 06:52 BP 162/70 H 04/26/23 07:02 Pulse Ox 96 04/26/23 06:52 O2 Del Method Room Air 04/26/23 06:52 O2 Flow Rate 2 04/24/23 04:27 BMI result Body Mass Index 34.1 Const: Other: Awake/confused. No acute distress Resp: Other: Clear to auscultation bilaterally no rales rhonchi or wheezes Cardio: Other: No S4; positive S1-S2; no S3 murmurs rubs or gallops GI: Other: Soft nontender nondistended normoactive bowel sounds Extrem: Other: No edema bilaterally Objective Data Active Medications Acetaminophen (Acetaminophen 325 Mg Tablet) 650 mg PO Q6H PRN PRN Reason: Pain, Mild (Pain Scale 1-3) Albuterol Sulfate (Albuterol Sulfate 90 Mcg 8 Gm Inhaler) 2 puff INHALE Q4H PRN PRN Reason: Shortness Of Breath Or Wheezing Aspirin (Aspirin 81 Mg Tab.Chew) 81 mg PO DAILY [facility] Last Admin: 04/26/23 07:21 Dose: 81 mg Documented By: NATHALY Atorvastatin Calcium (Atorvastatin Calcium 40 Mg Tablet) 40 mg PO BEDTIME [facility] Last Admin: 04/25/23 21:10 Dose: 40 mg Documented By: GALEN Clonazepam (Clonazepam 0.5 Mg Tablet) 0.5 mg PO BEDTIME [facility] Docusate Sodium (Docusate Sodium 100 Mg Capsule) 100 mg PO DAILY [facility] Last Admin: 04/26/23 07:05 Dose: 100 mg Documented By: NATHALY Donepezil HCl (Donepezil Hcl 10 Mg Tablet) 10 mg PO DAILY [facility] Last Admin: 04/23/23 10:46 Dose: 10 mg Documented By: NATALIE Enoxaparin Sodium (Enoxaparin Sodium 40 Mg/0.4 Ml Syringe) 40 mg SUBCUT Q24H [facility] Last Admin: 04/25/23 16:09 Dose: 40 mg Documented By: MACEY Ipratropium [place] (Ipratropium [place] 0.06 % 15 Ml [place]) 1 spray NOSTRIL-B DAILY [facility] Last Admin: 04/26/23 07:21 Dose: Not Given Documented By: NATHALY Non-Admin Reason: Patient Refused Lisinopril (Lisinopril 10 Mg Tablet) 10 mg PO DAILY [facility]; Protocol Last Admin: 04/26/23 07:20 Dose: 10 mg Documented By: NATHALY Magnesium Oxide (Magnesium Oxide 400 Mg Tablet) 400 mg PO BEDTIME [facility] Last Admin: 04/25/23 21:10 Dose: 400 mg Documented By: GALEN Metoprolol Succinate (Metoprolol Succinate Er 25 Mg Tab.Er.24h) 25 mg PO DAILY [facility]; Protocol Last Admin: 04/25/23 10:00 Dose: Not Given Documented By: ANNA Non-Admin Reason: combative Multivitamins/Vitamin C (Multivitamin Tablet) 1 tab PO DAILY [facility] Last Admin: 04/26/23 07:21 Dose: 1 tab Documented By: NATHALY Ondansetron HCl (Ondansetron Hcl 4 Mg/2 Ml Vial) 4 mg IVPUSH Q8H PRN PRN Reason: Nausea and Vomiting Polyethylene Glycol (Polyethylene Glycol 3350 17 Gm Powd.Pack) 17 gm PO DAILY [facility] Last Admin: 04/26/23 07:05 Dose: 17 gm Documented By: NATHALY Sertraline HCl (Sertraline Hcl 100 Mg Tablet) 100 mg PO DAILY [facility] Last Admin: 04/23/23 10:45 Dose: 100 mg Documented By: NATALIE Sodium Chloride (0.9 % Sodium Chloride Flush 3 Ml Syringe) 3 ml IVFLUSH QSHIFT [facility] Last Admin: 04/26/23 07:03 Dose: 3 ml Documented By: NATHALY Trazodone HCl (Trazodone Hcl 50 Mg Tablet) 50 mg PO BEDTIME [facility] Vitamin D (Cholecalciferol (Vitamin D3) 25 Mcg Tablet) 50 mcg PO BEDTIME [facility] Last Admin: 04/25/23 21:10 Dose: 50 mcg Documented By: GALEN Labs 04/26/23 07:00 04/25/23 10:33 Labs: Laboratory Results - last 24 hr 04/26/23 07:00 MCV 86.2 MCH 29.3 MCHC 34.0 RDW 13.3 Plt Count 181 MPV 10.0 Absolute Nucleated RBC 0.000 Nucleated RBC % (auto) 0.0 Hold Purple Top SEE NOTE Microbiology Microbiology Results: Microbiology 04/20/23 09:07 Blood Culture - Final Blood - Venous No growth after 5 days. 04/20/23 09:07 Blood Culture - Final Blood - Venous No growth after 5 days. Assessment and Plan (1) Colitis: Status: Acute (2) Major neurocognitive disorder: Status: Acute (3) Sinus bradycardia: Status: Acute Plan 77-year-old male with history of coronary artery disease, dementia who presents to the emergency department with weakness and N/V/D found to have colitis 1.Acute metabolic encephalopathy -due to acute illness above on a background of dementia, unspecified -PT consult rec> STR, spouse wants to take him home -patient still very confused and combative;prn seroquel 2.Bradycardia -30-40's hr ; hemodynamically stable -appreciate cardiology input; conservative therapies 3.Acute colitis vs gastroenteritis -s/p IV zosyn 5 days -tolerating advance diet 4.Dementia unspecified, likely Alzheimer's -hold namenda, aricept as per psychiatric provider 5.HTN -Acceptable control on current therapy c-ontinue lisinopril, metroprolol lovenox DNR/DNI continue hospital stay for safe disposition, arranging services at home Quality Stroke Does the patient have a stroke diagnosis?: No VTE Prior VTE?: No VTE Risk Level:: Medical - moderate - high VTE Device Contraindication: Treatment Not Indicated VTE Drug Contraindication: N/A - Med Ordered
[2023-04-26 15:07] VITALS: BP 129/67; PULSE 82; RESP 18; TEMP 36.3; O2SAT 94
[2023-04-26] MEDS: Enoxaparin Sodium 40 MG/0.4 ML SYRINGE SUBCUT (17:40)
[2023-04-26] MEDS: Artificial Tears 15 ML DROPS 2 DROP EYE-BOTH (17:40)
[2023-04-26 19:42] VITALS: BP 148/67; PULSE 65; RESP 19; TEMP 36.5; O2SAT 94
[2023-04-26] MEDS: traZODone HCL 50 MG TABLET PO (20:02)
[2023-04-26] MEDS: Cholecalciferol (Vitamin D3) 25 MCG TABLET 50 MCG PO (20:02)
[2023-04-26] MEDS: Magnesium Oxide 400 MG TABLET PO (20:02)
[2023-04-26] MEDS: clonazePAM 0.5 MG TABLET PO (20:02)
[2023-04-26] MEDS: Atorvastatin Calcium 40 MG TABLET PO (20:02)
--- NOTE | 2023-04-26 20:42 | PM.EVENT ---
Event Note Date of Service: 04/26/23 Event Note: Receiving texts almost nightly to notify patient becomes agitated around bedtime. According to nursing did not want patient to get Seroquel. He has been getting Klonopin and Trazodone but, it is unclear if these meds are contributing to his delirium and agitation. Valproic acid has been given the last 2 nights with good results: patient has been calmer and resting well. Time Spent With Patient Time: Total time managing care of this patient today ____ minutes.
[2023-04-27] MEDS: ondansetron HCL 4 MG/2 ML VIAL IVPUSH (06:38)
[2023-04-27 07:09] VITALS: BP 150/72; PULSE 67; RESP 16; TEMP 36.2; O2SAT 90
[2023-04-27] MEDS: lisinopriL 10 MG TABLET PO (08:02)
[2023-04-27] MEDS: Multivitamin TABLET 1 TAB PO (08:02)
[2023-04-27] MEDS: Aspirin 81 MG TAB.CHEW PO (08:02)
[2023-04-27] MEDS: 0.9 % Sodium Chloride Flush 3 ML SYRINGE IVFLUSH (08:03)
[2023-04-27 08:45] VITALS: O2SAT 93
[2023-04-27] MEDS: Artificial Tears 15 ML DROPS 2 DROP EYE-BOTH (12:34)
--- NOTE | 2023-04-27 12:57 | P.DS_ITS ---
DS: Providers Provider Date of Service: 04/27/23 Date of admission: 04/20/23 14:25 Date of discharge: 04/27/23 Primary care physician: Jonathan Chavarria MD Consults: 04/20/23 17:14 Consult to Neurology Routine Consulting Provider: [facility] Reason for consultation: confusion, shaking episodes; underlying dementia Has provider been notified: No 04/23/23 14:40 Consult to Gastroenterology Routine Consulting Provider: Soto Amanda Reason for consultation: colitis 04/24/23 16:30 Consult to Psychiatry Routine Consulting Provider: [facility] Reason for consultation: confusion, dementia 04/25/23 10:18 Consult to Neurology Routine Consulting Provider: [facility] Reason for consultation: ventriculomegaly on CT 04/25/23 13:44 Consult to Cardiology Routine Consulting Provider: [facility] Reason for consultation: bradycardia DS: Diagnosis Discharge Diagnosis (1) Major neurocognitive disorder: Status: Acute (2) Colitis: Status: Acute (3) Sinus bradycardia: Status: Acute DS: Summary Hospital Course Hospital Course: 77-year-old male with history of coronary artery disease and dementia who was brought to the emergency department by his due to increasing weakness. 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 Shortly after that time he began having multiple episodes of non bloody vomiting. As well as intermittent diarrhea. He has had no associated abdominal pain, fever, chills. No recent sick contacts, no recent antibiotic use or hospitalizations. Patient's says that he has not had anything substantial to eat since Monday and has had increasing generalized weakness and was unable to stand. In the emergency department he was afebrile, workup significant for bandemia of 25%. CT scan of the abdomen showed severe distention of colon by gas and liquid stool most likely due to colitis. He received a dose of IV ceftriaxone and IV fluid in the emergency department and the decision was made to admit him to the hospital for further management of colitis. The majority of his history was obtained from his at the bedside as the patient himself appears confused and is a vague historian at this time. [facility] Admitted to general medical floor and started on Zosyn. Dementia worsening with colitis; thought to be . Seen in consultation by Psychiatry who ultimately recommended trazodone 50 mg at HS along with clonidine 0.5 mg at HS. This proved to be the most effective regimen. He completed a course of Zosyn at this point in time stable on his HS regimen; his is anxious to take him home and he will follow-up with PCP as scheduled. Time Attestation Discharge coordination time: Greater than 30 minutes Quality: Safe Use of Opioids Does Pt have an Active Cancer Diagnosis on the Problem List?: No Quality: Stroke Does the patient have a stroke diagnosis?: No Physical Exam Vital Signs: Vital Signs: Last Vital Signs Temp 97.2 F 04/27/23 07:09 Pulse 67 04/27/23 07:09 Resp 16 04/27/23 07:09 BP 150/72 H 04/27/23 07:09 Pulse Ox 93 04/27/23 08:45 O2 Del Method Room Air 04/27/23 08:45 O2 Flow Rate 2 04/24/23 04:27 BMI result Body Mass Index 34.1 Const: Other: Awake/confused. No acute distress Resp: Other: Clear to auscultation bilaterally no rales rhonchi or wheezes Cardio: Other: No S4; positive S1-S2; no S3 murmurs rubs or gallops GI: Other: Soft nontender nondistended normoactive bowel sounds Extrem: Other: No edema bilaterally Discharge Plan Discharge Anticipated Discharge Date/Time: 04/27/23 12:51 Patient Disposition: Home Health Service Discharge Diagnosis: Acute colitis Referrals: Jonathan Chavarria MD [Primary Care Provider] - 1 Week Discharge Medications: New trazodone 50 mg Tablet 50 mg PO BEDTIME Qty: 30 0RF clonazepam 0.5 mg Tablet 0.5 mg PO BEDTIME Qty: 30 0RF Continued multivitamin Tablet 1 tab PO DAILY atorvastatin 40 mg tablet 40 mg PO BEDTIME donepezil 10 mg tablet 10 mg PO DAILY sertraline 100 mg tablet 100 mg PO DAILY lisinopril 10 mg tablet 10 mg PO DAILY naproxen sodium [Aleve] 220 mg Tablet 220 mg PO Q8H PRN (Reason: Pain) docusate sodium [Colace] 100 mg Capsule 100 mg PO DAILY aspirin 81 mg Tablet,Chewable 81 mg PO DAILY bisacodyl 5 mg Tablet,Delayed Release (Dr/Ec) 10 mg PO DAILY PRN (Reason: Constipation) metoprolol succinate 25 mg tablet extended release 24 hr 25 mg PO DAILY albuterol sulfate 90 mcg/actuation HFA aerosol inhaler 2 puff inhalation Q4H PRN (Reason: Shortness Of Breath Or Wheezing) ipratropium bromide 42 mcg (0.06 %) spray,non-aerosol 1 spray intranasal DAILY memantine 10 mg tablet 10 mg PO BID cholecalciferol (vitamin D3) 50 mcg (2,000 unit) Tablet 50 mcg PO BEDTIME Discharge Orders: Discharge Order (Routine); Ordered 04/27/23 Ordered By: Saw Veras Diet: Advance to usual diet Activity on Discharge: As tolerated Stand Alone Forms: Patient Portal Discharge page Care Plan Goals: Continue all medicines as taken prior to the hospital Health Concerns: Add trazodone 50 at bedtime along with clonidine 0.5 mg at bedtime Plan of Treatment: Follow-up with PCP next available Assessment: See discharge summary
--- NOTE | 2023-04-27 13:01 | P.F2F_ITS ---
Service Date Service Date: 04/27/23 Encounter Date of encounter: 04/27/23 Encounter: Acute hospitalization Reasons for Services Signs and symptoms assessed: Monitor symptoms of recurrent colitis; monitor response to therapies at for dementia Reason for senior care: medication management, medication treatment and teach disease management Homebound: Leaving the home is medically contraindicated at this time without the asist of a device and/or another person due th the listed conditions above and below. Reason homebound: unable to drive Certification: Based on the above findings, I certify that this patient is confined to the home and needs intermittent senior care care, physical therapy and/or speech therapy, or continues to need occupational therapy. The patient is under my care, and I have initiated the establishment of the plan of care. The patient will be followed by a physician who will periodically review the plan of care. Time Spent With Patient Time: Total time managing care of this patient today ____ minutes.
--- NOTE | 2023-04-27 13:02 | MHC.CM.PN ---
EMR reviewed. Per MD rounds patient is medically cleared for dc home with new [facility]. [facility] updated on dc. Face to face requested from MD. has private care set up through a family friend, scheduled for nights and times that she will be out of the house. IMM delivered to /HCP as patient is still confused. BLS transportation scheduled.
[2023-04-27 15:03] VITALS: BP 117/56; PULSE 80; RESP 16; TEMP 36.2; O2SAT 92
== END 2023-04-27 17:35 | disposition home health service (06) | DRG 391 ==
LOC: HO.ED 13:51 → HO.EDOVER 14:32 → HO.S3 16:30
PROVIDERS: Nurse Practitioner Acute Care; Physician Assistant Medical; Admitting Provider Physician Assistant Medical; Emergency Provider Emergency Medicine; PCP Family Medicine; Visit Provider Hospitalist
DX: K52.9 Noninfective gastroenteritis and colitis, unspecified (principal); G92.8 Other toxic encephalopathy; F05 Delirium due to known physiological condition; I25.10 Atherosclerotic heart disease of native coronary artery without angina pectoris; F39 Unspecified mood [affective] disorder; G30.9 Alzheimer's disease, unspecified; I10 Essential (primary) hypertension; R00.1 Bradycardia, unspecified; F02.80 Dementia in other diseases classified elsewhere, unspecified severity, without behavioral disturbance, psychotic disturbance, mood disturbance, and anxiety; Z66 Do not resuscitate; Z20.822 Contact with and (suspected) exposure to COVID-19; Z87.891 Personal history of nicotine dependence; Z79.82 Long term (current) use of aspirin; Z79.899 Other long term (current) drug therapy
CPT/HCPCS: 0241U; 36415; 70450; 71046; 74177; 80048; 80053; 81001; 81003; 82140; 82803; 83605; 83735; 84484; 85007; 85025; 85027; 85610; 85730; 87040; 87493; 87507; 92950; 93005; 95816; 97116; 97163; 97530; 99285; J0696; J1650; J2060; J2250; J2359; J2405; J2543; J3360; J7120; Q9967

== ENCOUNTER → 2023-04-20 08:16 | Outpatient (BNV) | payer MEDICARE, BC, SELFPAY | PROVIDERS: Admitting Provider Physician Assistant Medical; Emergency Provider Emergency Medicine; Visit Provider Internal Medicine Cardiovascular Disease | DX: R53.1 Weakness (principal) | CPT/HCPCS: 93010 ==

== ENCOUNTER 2023-04-20 14:25 | Outpatient (BNV) | payer MEDICARE, SELFPAY | END 2023-04-25 13:11 | PROVIDERS: Admitting Provider Physician Assistant Medical; Emergency Provider Emergency Medicine; PCP Family Medicine; Visit Provider Internal Medicine Cardiovascular Disease | DX: R00.1 Bradycardia, unspecified (principal) | CPT/HCPCS: 93010 ==

== ENCOUNTER → 2023-04-20 14:25 | Outpatient (BNV) | payer MEDICARE, SELFPAY | PROVIDERS: Admitting Provider Physician Assistant Medical; Emergency Provider Emergency Medicine; PCP Family Medicine; Visit Provider Internal Medicine Cardiovascular Disease | DX: R00.1 Bradycardia, unspecified (principal) | CPT/HCPCS: 99222 ==

== ENCOUNTER → 2023-04-20 14:25 | Outpatient (BNV) | payer MEDICARE, SELFPAY | PROVIDERS: Admitting Provider Physician Assistant Medical; Emergency Provider Emergency Medicine; PCP Family Medicine; Visit Provider Social Worker | DX: F03.90 Unspecified dementia, unspecified severity, without behavioral disturbance, psychotic disturbance, mood disturbance, and anxiety (principal) | CPT/HCPCS: 99232 ==

== ENCOUNTER → 2023-04-20 14:25 | Outpatient (BNV) | payer MEDICARE, SELFPAY | PROVIDERS: Admitting Provider Physician Assistant Medical; Emergency Provider Emergency Medicine; PCP Family Medicine; Visit Provider Psychiatry & Neurology Neurology | DX: F03.90 Unspecified dementia, unspecified severity, without behavioral disturbance, psychotic disturbance, mood disturbance, and anxiety (principal); G92.8 Other toxic encephalopathy; K52.9 Noninfective gastroenteritis and colitis, unspecified | CPT/HCPCS: 99222; 99232 ==

== ENCOUNTER → 2023-04-20 14:25 | Outpatient (BNV) | payer MEDICARE, BC, SELFPAY | PROVIDERS: Admitting Provider Physician Assistant Medical; Emergency Provider Emergency Medicine; Visit Provider Physician Assistant Medical | DX: F03.90 Unspecified dementia, unspecified severity, without behavioral disturbance, psychotic disturbance, mood disturbance, and anxiety (principal); K52.9 Noninfective gastroenteritis and colitis, unspecified; R00.1 Bradycardia, unspecified | CPT/HCPCS: 99223; 99232; 99233; 99238; 99499; G0180 ==

== ENCOUNTER 2023-11-20 15:33 | Emergency (ER) | payer MEDICARE, SELFPAY ==
--- NOTE | ~2023-11-20 | US_ITS ---
EXAMINATION: US ABDOMEN LIMITED CLINICAL INFORMATION: Abdominal pain. Question cholecystitis. COMPARISON: CT abdomen pelvis dated 11/20/2023. TECHNIQUE: Real-time imaging of the right upper quadrant abdominal viscera. The gallbladder and common bile duct were imaged. FINDINGS: GALLBLADDER: The gallbladder is physiologically distended without evidence of stones, sludge, polyps, or wall thickening. There is trace pericholecystic fluid. The sonographic Arteaga's sign is reported as negative. COMMON BILE DUCT: Normal in caliber measuring 0.6 cm in diameter. US/US abdomen limited IMPRESSION: No convincing sonographic evidence of acute cholecystitis. Electronically signed by: Nathan Miles DO 11/20/2023 08:48 PM EDT
--- NOTE | ~2023-11-20 | CT_ITS ---
EXAMINATION: CT ABDOMEN AND PELVIS WITH CONTRAST CLINICAL INFORMATION: Abdominal pain COMPARISON: CT abdomen and pelvis April 20, 2023 TECHNIQUE: Multidetector volumetric images were obtained from the superior aspect of the liver through the pubic symphysis following administration 85 mL of Omnipaque 350 intravenous contrast. Sagittal and coronal reformatted images were obtained on the technologist's workstation. Oral contrast: No This CT examination was performed using dose optimization techniques as appropriate, variously including the following: *Automated exposure control *Adjustment of mA and/or kV according to patient size (this includes techniques or standardized protocols for targeted exams where dose is matched to indication/reason for exam; i.e. extremities or head) *Use of iterative reconstruction technique DLP: 838 mGy-cm FINDINGS: Visualized lung bases demonstrate mild dependent atelectasis. The liver is normal in size. The gallbladder is normal in appearance. There is severe fatty atrophy of the pancreas. The spleen and adrenal glands are unremarkable. Symmetrically enhancing kidneys. There is no hydronephrosis of either kidney. Tiny cyst of the lower pole of the left kidney. Small hiatal hernia. The stomach demonstrates normal distention. Normal caliber loops of small and large bowel. Mild colonic diverticulosis without CT evidence to suggest active diverticulitis. There is a mild stool burden within the proximal and mid colon. Normal appendix. Normal caliber abdominal aorta demonstrating moderate atherosclerotic disease. No retroperitoneal lymphadenopathy. The bladder is normal in appearance. The prostate gland is normal in size. Small left fat-containing inguinal hernia. No gross free pelvic fluid. No inguinal lymphadenopathy. Diffuse osteopenia. Degenerative changes of the spine and hips. Mild anterolisthesis of L4 on L5. CT/CT abdomen pelvis w IV con IMPRESSION: 1. No CT evidence for acute abnormality within the abdomen or pelvis. 2. Mild colonic diverticulosis without CT evidence to suggest active diverticulitis. Fleischner guidelines were followed. Electronically signed by: Clement Abbott MD 11/20/2023 06:27 PM EDT
[2023-11-20 15:44] VITALS: BP 157/50; BP 190/57; PULSE 101; PULSE 60; RESP 16; TEMP 36.6; O2SAT 97; O2SAT 98; BMI 31.4
--- NOTE | 2023-11-20 15:44 | ECG_ITS ---
Test Reason : ABD PAIN Blood Pressure : / mmHG Vent. Rate : 050 BPM Atrial Rate : 050 BPM P-R Int : 144 ms QRS Dur : 082 ms QT Int : 428 ms P-R-T Axes : 083 039 055 degrees QTc Int : 390 ms Sinus bradycardia Otherwise normal ECG When compared with ECG of 25-APR-2023 13:11, No significant change was found Referred By: Amber Villatoro Electronically Signed By:JUDI YA
[2023-11-20] MEDS: 0.9 % Sodium Chloride 1,000 ML 999 ML IV (16:19)
[2023-11-20] MEDS: Famotidine/PF 20 MG/2 ML VIAL IVPUSH (16:19)
[2023-11-20] MEDS: ondansetron HCL 4 MG/2 ML VIAL IVPUSH (16:20)
--- NOTE | 2023-11-20 16:23 | ED_ITS ---
HPI - General Adult General Chief complaint: General Medical Stated complaint: ABD PAIN PER EMS Time Seen by Provider: 11/20/23 15:59 Source: patient Mode of arrival: ambulatory Limitations: no limitations History of Present Illness ED Provider: Morris Heath HPI narrative: 78-year-old male history of dementia and coronary artery disease presents to ED for abdominal came with nausea that began this morning. Patient states 3 hours before coming to ED started vomiting. Patient states generalized abdominal pain. Patient states able to pass gas. Patient states he has small bowel movement last night. Patient denies any diarrhea or blood in stool. Patient denies any chest pain or shortness of breath. Patient denies any fever or chills. Patient denies any trauma Related Data Home Medications ?Medication ?Instructions ?Recorded ?Confirmed aspirin 81 mg chewable tablet 81 mg PO DAILY 04/20/23 11/20/23 atorvastatin 40 mg tablet 40 mg PO BEDTIME 04/20/23 11/20/23 cholecalciferol (vitamin D3) 50 50 mcg PO BEDTIME 04/20/23 11/20/23 mcg (2,000 unit) tablet donepezil 10 mg tablet 10 mg PO DAILY 04/20/23 11/20/23 lisinopril 10 mg tablet 10 mg PO DAILY 04/20/23 11/20/23 memantine 10 mg tablet 10 mg PO BEDTIME 04/20/23 11/20/23 metoprolol succinate 25 mg 25 mg PO DAILY 04/20/23 11/20/23 tablet,extended release 24 hr multivitamin 1 tab PO DAILY 04/20/23 11/20/23 trazodone 50 mg tablet 25 mg PO DAILY 11/20/23 11/20/23 trazodone 50 mg tablet 50 mg PO BEDTIME 11/20/23 11/20/23 Previous Rx's ?Medication ?Instructions ?Recorded walker (Ultra-Light Rollator misc) #1 ea 04/27/23 docusate sodium 100 mg capsule 100 mg PO BID 7 days #14 caps 11/20/23 (Colace) oxycodone 5 mg capsule 5 mg PO Q8H PRN pain 3 days #9 caps 11/20/23 Allergies Allergy/AdvReac Type Severity Reaction Status Date / Time No Known Allergies Allergy Verified 11/20/23 15:45 Review of Systems 2 Review of Systems: Generalized abdominal pain Yes all other systems are reviewed and are negative PMFSH Past Medical History Medical History (Updated 11/21/23 @ 00:02 by Himanshu Plascencia) Sinus bradycardia Major neurocognitive disorder Primary degenerative dementia Dementia CAD (coronary artery disease) Family History Family History (Updated 04/20/23 @ 14:40 by SHAYY Cat) Mother CAD (coronary artery disease) Diabetes Social History Social History (Updated 04/20/23 @ 14:40 by SHAYY Cat) Household Members: Spouse Housing: House Alcohol intake: never Comment: 1:1 sitter Patient Tobacco Use Status: Former Tobacco user Advance Directives Date on File: 04/28/23 service: No Physical Exam ED Vital Signs: Vital Signs - 24 hr 11/20/23 15:44 11/20/23 16:43 11/20/23 17:43 Temperature 97.9 F Pulse Rate 101 H Respiratory Rate 16 17 18 Blood Pressure 190/57 H Pulse Oximetry 98 Oxygen Delivery Method Room Air 11/20/23 18:35 11/20/23 22:07 11/20/23 23:07 Temperature 98.4 F 98.2 F 98.2 F Pulse Rate 56 64 87 Respiratory Rate 16 14 19 Blood Pressure 176/46 H 164/62 H 187/80 H Pulse Oximetry 94 96 95 Oxygen Delivery Method Room Air Room Air Room Air BMI result Body Mass Index 31.4 Const General: cooperative, healthy appearing, comfortable, no acute distress, well developed, alert, awake and Physically active Orientation/consciousness: patient oriented x3 HENMT Head: Yes normal to inspection, Yes No palpable skull fracture present, Yes normocephalic and Yes atraumatic Eyes General: appearance normal, both eyes and all related structures Neck Neck: Yes normal visual inspection, Yes full ROM, Yes no lymphadenopathy, Yes no meningeal signs, Yes trachea midline, Yes supple, No anterior neck swelling and No tender Chest Chest palpation & inspection: normal inspection of the chest and normal palpation of entire chest wall Resp Effort & Inspection: normal respiratory effort and able to speak in complete sentences Auscultation: clear to auscultation bilaterally Cardio Jugular venous distension: no JVD Heart sounds: S1 normal heart sound present and S2 normal heart sound present GI Inspection: Yes normal to inspection Palpation (GI): Soft to palpation, not firm, Tenderness to palpation present (GI) (mild) in the epigastrum, in the LUQ and in the RUQ, no guarding and not rigid General: No CVA tenderness and Yes no CVA tenderness Back/Spine/Pelvis Back: no CVA tenderness, No CVA tenderness and No back tenderness Skin General skin exam: no rashes or lesions noted, elasticity normal and turgor normal Neuro General: patient oriented x3, gait normal, tone normal, moves all extremities, Normal light touch and pain sensation, no meningeal signs, no focal motor deficits, CN's II-XI intact bilaterally and normal sensation to monofilament Extrem General: Yes normal to inspection, Yes full ROM and Yes capillary refill normal Psych Appearance: grossly normal, well kempt and not disheveled Medications Administered Discontinued Medications Generic Name Dose Route Start Last Admin Trade Name Edilma PRN Reason Stop Dose Admin Famotidine 20 mg 11/20/23 16:08 11/20/23 16:19 Famotidine/Pf 20 Mg/2 Ml Vial IVPUSH 11/20/23 16:09 20 mg ONCE ONE Administration Sodium Chloride 1,000 mls @ 999 mls/hr 11/20/23 16:07 11/20/23 17:44 Ns IV 11/20/23 17:07 Infused .Q1H1M STA Infusion Iohexol 100 ml 11/20/23 17:18 11/20/23 17:19 Iohexol 350 Mg/Ml 100 Ml Infus..Btl IV 11/20/23 17:19 85 ml ONCE ONE Administration Morphine Sulfate 4 mg 11/20/23 16:39 11/20/23 16:43 Morphine Sulfate 4 Mg/Ml Cartridge IVPUSH 11/20/23 16:40 4 mg ONCE ONE Administration Protocol Ondansetron HCl 4 mg 11/20/23 16:07 11/20/23 16:20 Ondansetron Hcl 4 Mg/2 Ml Vial IVPUSH 11/20/23 16:08 4 mg ONCE ONE Administration Medical Decision Making Medical Decision Making MDM Narrative: 78-year-old male history of dementia coronary artery disease presently alert oriented x3 states generalized abdominal pain. Patient is not in severe or any distress. Mild abdominal bilateral pain on palpation. EKG labs ordered. CT scan ordered. Zofran pepcid fluids ordered. 10:58. Patient has elevated liver enzymes elevated lipase. CT scan ultrasound negative for obvious cholecystitis. Case was discussed with surgeon Dr. Castellanos due to ultrasound stating trace cholecystitis although no obvious signs of cholecystitis. He states patient not does not need surgical intervention and could be admitted to hospitalist for pancreatitis. Case was discussed with hospitalist Dr. Moss who agreed for patient to be admitted. She came and evaluated patient and patient and his states they would like to sign out against medical advice known risk of . I went to the bedside educated on patient's need needing to be admitted for pancreatitis but patient would like to be discharged with p.o. medication. also wants patient to be discharged. They signed against medical advice known risk of and worsening symptoms/outcomes. Differential Diagnosis Differential Diagnoses: The differential diagnosis associated with the presentation includes (Pancreatitis, GERD, ND, cholecystitis) Admission/Observation Consideration of admission/observation: Escalation of care including admission/observation considered Consult Healthcare Provider Management of the patient was discussed with: Hospitalist (Dr. Moss) and Masking Machine Feeder (Dr. Castellanos) Lab Data MDM Lab Attestation statement: I reviewed the patient's lab results. 11/20/23 16:22 11/20/23 16:22 Labs: Lab Results 11/20/23 11/20/23 11/20/23 Range/Units 16:12 16:22 21:48 WBC 14.6 H (4.8-10.8) X10*3/uL RBC 4.72 (4.60-5.80) X10*6/uL Hgb 14.1 (14.0-18.0) g/dl Hct 41.0 L (42.0-52.0) % MCV 86.9 (80.0-98.0) fL MCH 29.9 (27.0-33.0) pg MCHC 34.4 (31.0-36.0) g/dl RDW 13.6 (11.0-16.0) % Plt Count 219 (160-400) X10*3/uL MPV 9.4 (9.4-12.4) fL Immature Gran % (Auto) 0.8 H (0.0-0.4) % Neut % (Auto) 90.6 H (45-73) % Lymph % (Auto) 5.0 L (20-40) % [place] % (Auto) 3.2 (2-11) % Eos % (Auto) 0.1 (0-4) % Baso % (Auto) 0.3 (0-2) % Lymph # (Auto) 0.7 L (1.2-4.9) X10*3/uL [place] # (Auto) 0.5 (0.1-1.2) X10*3/uL Eos # (Auto) 0.0 (0.0-0.4) X10*3/uL Baso # (Auto) 0.0 (0.0-0.2) X10*3/uL Abs Immat Gran (auto) 0.12 H (0.00-0.03) X10*3/uL Absolute Neuts (auto) 13.2 H (2.0-8.3) x10*3/uL Absolute Nucleated RBC 0.000 (0.0-0.012) X10*3/uL Nucleated RBC % (auto) 0.0 (0.0-0.2) /100WBC Smear Tech's Comments VERIFIED Sodium 141 (135-145) mmol/L Potassium 4.0 (3.3-5.1) mmol/L Chloride 108 (96-108) mmol/L Carbon Dioxide 26 (22-29) mmol/L Anion Gap 11 L (12-20) BUN 13 (9-16) mg/dL Creatinine 0.97 (0.5-1.4) mg/dL Estim Creat Clear Calc 76.3 Estimated GFR > 60 Random Glucose 177 H (60-115) mg/dL Calcium 9.1 D (8.4-10.2) mg/dL Magnesium 1.9 (1.6-2.6) mg/dL Total Bilirubin 1.4 H (0.0-1.0) mg/dL AST 100 H (5-37) U/L ALT 81 H (0-40) U/L Alkaline Phosphatase 111 (39-117) U/L Troponin I High Sens < 2.7 9.9 D (<3.5-35.0) ng/L Total Protein 6.6 (6.5-8.0) g/dL Albumin 3.9 (3.5-5.0) g/dL Lipase 430 H (8-78) U/L Influenza Type A (PCR) NEGATIVE (Negative) Influenza Type B (PCR) NEGATIVE (Negative) RSV RNA Qual (PCR) NEGATIVE (Negative) SARS-CoV-2 RNA (RT-PCR) NEGATIVE (Negative) Independent Interpretation I performed an independent interpretation of an: EKG (Sinus bradycardia), Ultrasound and CT Scan Radiology Impression Discussion of test interpretation with radiology: I have reviewed the radiologist's reading. Independent Historian Clinical information obtained from an independent historian. History obtained from or confirmed by: Spouse () and Other (patient) External Record Review External record reviewed: Other (prior edewards) Prescription Management I considered prescription management with: Pain Medication Discharge Plan Discharge Clinical Impression: Acute pancreatitis Patient Disposition: Left Against Medical Advice Instructions: Pancreatitis (ED) Additional Instructions: You are leaving against medical advice. Return to the ED immediately for worsening abdominal pain, nausea, vomiting, chest pain, shortness of breath, weakness, dizziness, or any other concerning symptoms. Prescriptions: New docusate sodium [Colace] 100 mg capsule 100 mg PO BID 7 Days Qty: 14 0RF oxycodone 5 mg capsule 5 mg PO Q8H PRN (Reason: pain) 3 Days Qty: 9 0RF Rx Instructions: Partial Fill upon patient request. No Action multivitamin Tablet 1 tab PO DAILY atorvastatin 40 mg tablet 40 mg PO BEDTIME donepezil 10 mg tablet 10 mg PO DAILY lisinopril 10 mg tablet 10 mg PO DAILY aspirin 81 mg Tablet,Chewable 81 mg PO DAILY metoprolol succinate 25 mg tablet extended release 24 hr 25 mg PO DAILY memantine 10 mg tablet 10 mg PO BEDTIME cholecalciferol (vitamin D3) 50 mcg (2,000 unit) Tablet 50 mcg PO BEDTIME (DME) Ultra-Light Rollator Misc See Rx Instructions .Route Qty: 1 0RF Rx Instructions: As directed trazodone 50 mg Tablet 25 mg PO DAILY trazodone 50 mg tablet 50 mg PO BEDTIME Stand Alone Forms: Against Medical Advice Interventions: ED Discharge Assessment Last Done: 11/20/23 23:07 Discharge Date/Time: 11/20/23 23:10 Print Language: Salvadorean
[2023-11-20 16:39] LABS: Basophils Percent Auto 0.3 % (0-2); Eosinophils Percent Auto 0.1 % (0-4); Hemoglobin 14.1 g/dl (14.0-18.0); Imm Gran Abs Auto 0.12 X10*3/uL (0.00-0.03); Imm Gran Pct Auto 0.8 % (0.0-0.4); Lymphocytes Absolute Auto 0.7 X10*3/uL (1.2-4.9); MANUAL DIFF FLAG SCAN; Mean Corpuscular HGB Conc 34.4 g/dl (31.0-36.0); Mean Corpuscular Hemoglobin 29.9 pg (27.0-33.0); Mean Corpuscular Volume 86.9 fL (80.0-98.0); Mean Platelet Volume 9.4 fL (9.4-12.4); Monocytes Absolute Auto 0.5 X10*3/uL (0.1-1.2); Monocytes Percent Auto 3.2 % (2-11); Neutrophils Absolute Auto 13.2 x10*3/uL (2.0-8.3); Neutrophils Percent Auto 90.6 % (45-73); Platelet Count 219 X10*3/uL (160-400); Red Blood Count 4.72 X10*6/uL (4.60-5.80); Red Cell Distribution Width 13.6 % (11.0-16.0); SCAN SMEAR FLAG 1; White Blood Count 14.6 X10*3/uL (4.8-10.8)
[2023-11-20 16:43] VITALS: RESP 17
[2023-11-20] MEDS: Morphine Sulfate 4 MG/ML CARTRIDGE IVPUSH (16:43)
[2023-11-20 16:45] LABS: Alanine Aminotransferase 81 U/L (0-40); Albumin Level 3.9 g/dL (3.5-5.0); Alkaline Phosphatase 111 U/L (39-117); Anion Gap 11 (12-20); Aspartate Amino Transferase 100 U/L (5-37); Bilirubin Total 1.4 mg/dL (0.0-1.0); Blood Urea Nitrogen 13 mg/dL (9-16); Calcium 9.1 mg/dL (8.4-10.2); Carbon Dioxide 26 mmol/L (22-29); Chloride 108 mmol/L (96-108); Creatinine Clr Calc Pharmacy 76.3; Estimated Glomerular Filt Rate > 60; Glucose Random 177 mg/dL (60-115); Magnesium 1.9 mg/dL (1.6-2.6); Sodium 141 mmol/L (135-145); Total Protein 6.6 g/dL (6.5-8.0)
[2023-11-20 16:53] LABS: Troponin-I High Sensitivity < 2.7 ng/L (<3.5-35.0)
[2023-11-20 17:07] LABS: Influenza A PCR NEGATIVE (Negative); Influenza B PCR NEGATIVE (Negative); Resp Syncy Virus RNA Qual PCR NEGATIVE (Negative); SARS COV2 PCR INHOUSE NEGATIVE (Negative)
[2023-11-20] MEDS: iohexoL 350 MG/ML 100 ML INFUS..BTL IV (17:19)
[2023-11-20 17:36] LABS: Lipase 430 U/L (8-78)
[2023-11-20 17:43] VITALS: RESP 18
[2023-11-20 18:08] LABS: SLIDE REVIEW VERIFIED
[2023-11-20 18:35] VITALS: BP 176/46; PULSE 56; RESP 16; TEMP 36.9; O2SAT 94
--- NOTE | 2023-11-20 19:39 | PHA.MEDREC ---
Pharmacy Consult ? Medication Reconciliation Pharmacy has completed the medication reconciliation. Utilized medication list.
[2023-11-20 22:07] VITALS: BP 164/62; PULSE 64; RESP 14; TEMP 36.8; O2SAT 96
[2023-11-20 22:14] LABS: Troponin-I High Sensitivity 9.9 ng/L (<3.5-35.0)
--- NOTE | 2023-11-20 23:01 | PC.NURSE ---
Patient hypertensive at 187/80 at time of discharge. MD aware and no additional orders were obtained. Patient very anxious and becoming aggresive with staff and at this time. has known alzheimers
--- NOTE | 2023-11-20 23:02 | PM.EVENT ---
Event Note Date of Service: 11/20/23 Event Note: Spoke with patient and . Refusing hospitalization. They decided to leave AMA. Time Spent With Patient Time: Total time managing care of this patient today ____ minutes.
[2023-11-20 23:07] VITALS: BP 187/80; PULSE 87; RESP 19; TEMP 36.8; O2SAT 95
== END 2023-11-20 23:10 | disposition left against medical advice (07) ==
PROVIDERS: Physician Assistant; Physician Assistant Medical; Emergency Provider Internal Medicine; PCP Family Medicine
DX: K85.90 Acute pancreatitis without necrosis or infection, unspecified (principal); R00.1 Bradycardia, unspecified; R11.2 Nausea with vomiting, unspecified; Z03.818 Encounter for observation for suspected exposure to other biological agents ruled out; Z79.899 Other long term (current) drug therapy
CPT/HCPCS: 0241U; 36415; 74177; 76705; 80053; 83690; 83735; 84484; 85025; 93005; 96361; 96374; 96375; 99285; J2270; J2405; Q9967